=== PATIENT | female | born 1970 | race African-American/Black ===

== ENCOUNTER → 2019-01-16 | Outpatient (CLI) | payer MEDICARE ==
[~2019-01-16] MED LIST: ADVAIR INH; AMITRIPTYLINE H50 MG PO; BENICAR HCT 201 EACH PO; BENZONATATE100 MG PO; CLONAZEPAM0.5 MG PO; CYCLOBENZAPRINE10 MG PO; ELMIRON100 MG PO; FLOVENT DISKUS50 MCG; FOLIC ACID PO; FOLIC ACID1 MG PO; FOSAMAX70 MG PO; HUMALOG100 UNITS/ INJ; HUMIRA INJ; HUMIRA40 MG/0.1 INJ; KLONOPIN PO; LANTUS100 UNITS/ INJ; LEVAQUIN PO; LOPRESSOR PO; METHIMAZOLE5 MG PO; METHOTREXATE 1 G1 GM INJ; METOPROLOL SUC100 MG PO; NORCO 10-325 T1 EACH PO; PROMETHAZINE HC25 M1 PO; PROZAC40 MG PO; TRULICITY INJ; TYLENOL # 31 EA; UTA PO; VENTOLIN HFA18 GM INH
--- NOTE | 2019-01-16 10:38 | Diagnostic Imaging Report ---
EXAM: Renal Ultrasound INDICATION: ^[id number] ^[id number] ^CYST OF KIDNEY COMPARISON: None TECHNIQUE: Transverse and longitudinal images of the kidneys and bladder were obtained. FINDINGS: Right Kidney: Length: 9.3 cm Appearance: Normal echogenicity. Collecting system: No hydronephrosis Stones: None Cyst/Mass: Mid pole 1.3 x 0.9 x 1.1 cm anechoic simple cyst. Left Kidney: Length: 9.7 cm Appearance: Normal echogenicity. Collecting system: No hydronephrosis Stones: None Cyst/Mass: None Bladder: No mass or calculi. Bilateral ureteral jets seen. Prevoid volume estimate of 282.0 cc. IMPRESSION: No renal calculi or hydronephrosis. Right midpole simple cyst. Signed by: Sydney Hooper MD on 01/16/2019 10:35 AM
== END ==
LOC: US 09:11
PROVIDERS: ATTEND Urology
DX: N28.1 Cyst of kidney, acquired (principal)
CPT/HCPCS: 76770

== ENCOUNTER → 2019-01-26 | Outpatient (CLI) | payer MEDICARE ==
--- NOTE | 2019-01-26 13:49 | Diagnostic Imaging Report ---
Sacrum, 2 views. Pelvis, 1 view. History: InterStim placement. Findings: The soft tissues are normal. Bone mineralization is normal. There is no evidence of fracture or dislocation. There are no lytic or sclerotic lesions. The SI joints are within normal limits. Bilateral InterStim devices and leads are in appropriate position. IMPRESSION: Appropriate InterStim placement. No osseous abnormality. Signed by: Crow Mahajan on 01/26/2019 1:46 PM
== END ==
LOC: RAD 12:50
PROVIDERS: ATTEND Urology
DX: N31.9 Neuromuscular dysfunction of bladder, unspecified (principal)
CPT/HCPCS: 72170; 72220

== ENCOUNTER → 2019-04-17 | Day surgery (SDC) | payer MEDICARE ==
[2019-04-13 11:27] LABS: BASOPHILS # (AUTO) 0.1 (0.0-0.1); BASOPHILS % 0.8 % (0.0-1.0); EOSINOPHILS # (AUTO) 0.2 (0.0-0.4); EOSINOPHILS % 1.9 % (0.0-6.0); HEMATOCRIT 36.6 % (34.2-44.1); HEMOGLOBIN 11.9 g/dL (12.0-16.0); LYMPHOCYTES # (AUTO) 4.9 (1.0-3.2); LYMPHOCYTES % 56.2 % (18.0-39.1); MEAN CORPUSCULAR HEMOGLOBIN 28.4 pg (28-32); MEAN CORPUSCULAR HGB CONC 32.5 g/dL (31-35); MEAN CORPUSCULAR VOLUME 87.4 fL (81-99); MONOCYTES # (AUTO) 0.4 (0.2-0.8); MONOCYTES % 4.8 % (4.4-11.3); NEUTROPHILS # (AUTO) 3.1 (2.1-6.9); PLATELET COUNT 417 x10e3/uL (140-360); RED BLOOD COUNT 4.19 x10e6/uL (3.6-5.1); RED CELL DISTRIBUTION WIDTH 13.2 % (11.7-14.4)
[2019-04-13 11:43] LABS: ANION GAP 14.8 mmol/L (8-16); BLOOD UREA NITROGEN 10 mg/dL (7-26); BUN/CREATININE RATIO 11 (6-25); CALCIUM 9.2 mg/dL (8.4-10.2); CARBON DIOXIDE 24 mmol/L (22-29); CHLORIDE 101 mmol/L (98-107); EST GLOMERULAR FILTRATION RATE > 60 ML/MIN (60-); GLUCOSE 75 mg/dL (74-118); SODIUM 137 mmol/L (136-145)
[2019-04-13 12:24] LABS: POTASSIUM 2.8 mmol/L (3.5-5.1)
[~2019-04-17] MED LIST changes: +B&O 60MG R/S 60 MG SUPP PR ONE; +BENICAR20 MG PO; +BOTULINUM TOXIN TYPE A 100 UNIT VIAL IM ONE; +DEXAMETHASONE SOD PHOS INJ 4 MG/ML VIAL ONE; +DEXTROSE 5% 250ML 250 ML IV ONE; +FENTANYL CITRATE/PF 100MCG/2 ML INJ ONE; +GENTAMICIN 80MG/NS 100 ML 200 ML IV ONE; +HYDROCODONE/APAP 10MG-325MG TAB ONE; +IOPAMIDOL 300MG/ML 50ML INFUS..BTL IV ONE; +LEVOTHYROXINE125 MCG PO; +LEXAPRO10 MG PO; +LIDOCAINE HCL 2% LOCAL INJ 5 ML SDV VIAL INJ ONE; +MICROZIDE12.5 MG PO; +MIDAZOLAM HCL 2 MG/2 ML VIAL ONE; +MYRBETRIQ50 MG PO; +NITROGLYCERIN0.4 MG SL; +ONDANSETRON HCL INJ 2MG/ML 2ML 2 MG/ML VIAL ONE; +PREDNISONE5 MG PO; +PROPOFOL IV EMULSION 10 MG/ML 20 ML VIAL ONE; +SEVOFLURANE INHAL SOLN 250 ML PEN BTL ONE; +TIZANIDINE HCL2 M1 PO; +[UNRECOGNIZED DRUG - OTHER] PO
[2019-04-17 09:00] VITALS: BP 115/71
--- NOTE | 2019-05-24 00:54 | Operative Report ---
DATE OF PROCEDURE: 04/17/2019 SURGEON: Alexsander Taylor MD PREOPERATIVE DIAGNOSES: 1. Urge incontinence. 2. Urinary tract infections. POSTOPERATIVE DIAGNOSES: 1. Urge incontinence. 2. Urinary tract infections. 3. Grade 2 cystocele. 4. Urethral hypermobility. 5. Atrophic (senile) vaginitis. OPERATIONS PERFORMED: 1. Cystourethroscopy with bilateral ureteral catheterization and retrograde ureteropyelography. 2. Interpretation of retrograde ureteropyelography. 3. Cystourethroscopy with intravesical injection of Botox (separate procedure performed for the refractory incontinence). 4. Pelvic examination under anesthesia. ANESTHESIA: General. COMPLICATIONS: None. CLINICAL SUMMARY: Janice Vega is a 49-year-old woman with the above preoperative diagnoses. She is brought for the above procedures. She is aware of the risks of bleeding, infection, injury to adjacent structures, need for additional procedures and elected to proceed. OPERATIVE PROCEDURE IN DETAIL: Informed consent was verified. Janice Vega was properly identified, taken to the operating room, placed on the cystoscopy table in supine position. Anesthesia was uneventfully begun. The patient was then carefully gently repositioned in the dorsal lithotomy position with all pressure points well padded. Her genitalia were prepared and draped in the usual sterile fashion. Cystoscope sheath was inserted into the patient's urethra and bladder was drained. Panendoscopy revealed no suspicious mucosal lesions, no tumors, no stones, and no diverticula. Trabeculations were noted. An 8-Turkmen catheter was used to cannulate each ureter and retrograde ureteral pyelograms were performed. Interpretation of retrograde ureteropyelography contrast was instilled in retrograde fashion bilaterally. There were no tumors, no stones, and no diverticula. Unobstructed drainage was observed bilaterally fluoroscopically. Bilateral J hooking was noted. InterStim leads were noted to be in place. These are the older generation leads. A 200 units of Botox were dissolved in 20 mL of sterile saline. They were injected in 1 mL aliquots in an even distribution throughout the supratrigonal bladder. The bladder was drained. Cystoscope was withdrawn. Pelvic examination revealed a grade 2 cystocele with urethral hypermobility and atrophic vaginitis. No abnormal palpable pelvic masses could be appreciated. There were no obvious mucosal lesions. The patient was then uneventfully reversed from anesthesia and taken to recovery room in stable condition. There were no complications to the procedure. She tolerated the procedure well. Explicit postop instructions were given. We will follow the patient in the office. MD CHATO Manzano/JENELLE /[id number]
== END | disposition home or self-care (01) ==
LOC: OR 05:17
PROVIDERS: ATTEND Urology
DX: N39.41 Urge incontinence (principal); N39.0 Urinary tract infection, site not specified; N81.10 Cystocele, unspecified; N36.41 Hypermobility of urethra; N95.2 Postmenopausal atrophic vaginitis; N32.89 Other specified disorders of bladder; N31.9 Neuromuscular dysfunction of bladder, unspecified; R39.16 Straining to void; R81 Glycosuria; R35.1 Nocturia; Z98.890 Other specified postprocedural states; M32.9 Systemic lupus erythematosus, unspecified; E66.9 Obesity, unspecified; M06.9 Rheumatoid arthritis, unspecified; E11.9 Type 2 diabetes mellitus without complications; J45.909 Unspecified asthma, uncomplicated; I34.1 Nonrheumatic mitral (valve) prolapse; K58.9 Irritable bowel syndrome, unspecified; I11.0 Hypertensive heart disease with heart failure; I50.9 Heart failure, unspecified; Z88.0 Allergy status to penicillin; Z88.6 Allergy status to analgesic agent; Z88.1 Allergy status to other antibiotic agents; Z91.041 Radiographic dye allergy status; Z01.812 Encounter for preprocedural laboratory examination; Z79.4 Long term (current) use of insulin; Z68.30 Body mass index [BMI] 30.0-30.9, adult; Z87.442 Personal history of urinary calculi
CPT/HCPCS: 36415 ×2; 52005; 52287; 74420; 80048; 82948; 84132; 85025; C1758; J0587; J1100; J1580; J2001; J2250; J2405; J2704; J3010; J7070; Q9967

== ENCOUNTER → 2019-06-23 | Day surgery (SDC) | payer MEDICARE ==
[~2019-06-23] MED LIST changes: +AZO BLADDER CO300 MG; +AZO COMPLETE F1 EACH PO; +BACLOFEN10 MG PO; +BUPIVACAINE HCL 0.5% INJ 30 ML VIAL INJ ONE; +DESFLURANE 240 ML BTL INH ONE; -DEXTROSE 5% 250ML 250 ML IV ONE; +EPHEDRINE SULFATE INJ 50 MG/ML VIAL ONE; -HYDROCODONE/APAP 10MG-325MG TAB ONE; +LEVOFLOXACIN 500MG/D5W 100ML 100 ML IV ONE; +LIDOCAINE 2%/ EPINEPHRINE 20ML MDV ONE; +MACROBID 100 M100 MG PO; +POTASSIUM99 M1 PO; +PROAIR HFA INH8.5 GM INH; -SEVOFLURANE INHAL SOLN 250 ML PEN BTL ONE; +VITAMIN D35000 UNI2 PO
[2019-06-23 09:33] LABS: BASOPHILS # (AUTO) 0.1 (0.0-0.1); BASOPHILS % 0.6 % (0.0-1.0); EOSINOPHILS # (AUTO) 0.3 (0.0-0.4); EOSINOPHILS % 2.9 % (0.0-6.0); HEMATOCRIT 34.7 % (34.2-44.1); LYMPHOCYTES # (AUTO) 5.1 (1.0-3.2); LYMPHOCYTES % 54.2 % (18.0-39.1); MEAN CORPUSCULAR HEMOGLOBIN 28.4 pg (28-32); MEAN CORPUSCULAR HGB CONC 31.7 g/dL (31-35); MEAN CORPUSCULAR VOLUME 89.7 fL (81-99); MONOCYTES # (AUTO) 0.6 (0.2-0.8); MONOCYTES % 5.8 % (4.4-11.3); NEUTROPHILS # (AUTO) 3.4 (2.1-6.9); NEUTROPHILS % 36.1 % (38.7-80.0); PLATELET COUNT 416 x10e3/uL (140-360); RED BLOOD COUNT 3.87 x10e6/uL (3.6-5.1); RED CELL DISTRIBUTION WIDTH 13.6 % (11.7-14.4)
[2019-06-23 09:56] LABS: ANION GAP 12.7 mmol/L (8-16); BLOOD UREA NITROGEN 16 mg/dL (7-26); BUN/CREATININE RATIO 15 (6-25); CALCIUM 8.7 mg/dL (8.4-10.2); CARBON DIOXIDE 24 mmol/L (22-29); CHLORIDE 106 mmol/L (98-107); CREATININE, SERUM 1.05 mg/dL (0.57-1.11); EST GLOMERULAR FILTRATION RATE > 60 ML/MIN (60-); GLUCOSE 87 mg/dL (74-118); POTASSIUM 3.7 mmol/L (3.5-5.1); SODIUM 139 mmol/L (136-145)
[2019-06-23 10:49] LABS: EOSINOPHILS % (MANUAL) 1 % (0-7); MONOCYTES % (MANUAL) 2 % (3.4-9.0); NEUTROPHILS % (MANUAL) 29 % (40-74); PLATELET ESTIMATE SLIGHTLY INCREASED; RBC MORPHOLOGY COMMENT NORMAL
[2019-06-23 10:50] LABS: LYMPHOCYTES % (MANUAL) 68 % (19-48); PLATELET MORPHOLOGY COMMENT NORMAL
[2019-06-23 13:00] VITALS: BP 115/69
--- NOTE | 2019-06-25 23:01 | Operative Report ---
DATE OF PROCEDURE: 06/23/2019 SURGEON: Alexsander Taylor MD PREOPERATIVE DIAGNOSES: 1. Chronic urinary retention with pain. 2. Overactive bladder with refractory urge incontinence. 3. Urinary tract infections. POSTOPERATIVE DIAGNOSES: 1. Chronic urinary retention with pain. 2. Overactive bladder with refractory urge incontinence. 3. Urinary tract infections. 4. Mild grade 1 cystocele. OPERATIONS PERFORMED: 1. Cystourethroscopy with bilateral ureteral catheterization and retrograde ureteropyelography (separate procedure performed for the urinary tract infections). 2. Interpretation of retrograde ureteropyelography. 3. Cystourethroscopy with intravesical injection of Botox (separate procedure performed for the refractory incontinence). 4. Cystotomy and cystostomy (separate procedure done in an open fashion to drain the patient's bladder). ANESTHESIA: General. COMPLICATIONS: None. CLINICAL SUMMARY: Janice Vega is a 49-year-old woman with very complicated history. She has chronic urinary retention as a result of elimination of bladder, which developed following her hysterectomy many years ago. The patient has been managed with intermittent catheterizations; however, this has become problematic and she has developed fairly significant pain in her bladder. She desires her pain relieved with suprapubic cystostomy. She is aware of the coronavirus outbreak and the potential for COVID-19 infection; however, she wants this procedure done to help relieve her pain and she cannot wait a month or two for this epidemic to resolve. She understands all the risks and elected to proceed. OPERATIVE PROCEDURE IN DETAIL: Informed consent was verified. Janice Vega was properly identified, taken to the operating room, placed on the cystoscopy table in supine position. Anesthesia was uneventfully begun. The patient was then carefully gently repositioned in dorsal lithotomy position. All pressure points well padded. Her genitalia were prepared and draped in the usual sterile fashion. The cystoscope sheath with obturator in place was atraumatically inserted in the patient's urethra and bladder was drained. Panendoscopy revealed no suspicious mucosal lesions, no tumors, no stones, and no diverticula. Normally positioned and configured ureteral orifices were identified. An 8-Tongan catheter was used to cannulate each ureter and retrograde ureteral pyelograms were performed. Interpretation of retrograde ureteropyelography contrast was instilled in retrograde fashion bilaterally. There were no tumors, no stones, no diverticula. Unobstructed drainage was observed bilaterally fluoroscopically. Bilateral InterStim leads were noted. These are the old leads that have been discontinued many years ago. 200 units of Botox were dissolved in 20 mL of sterile saline. They were injected in 1 mL aliquots in an even distribution throughout the supratrigonal bladder. The cystoscope was withdrawn. We utilized Cassy sound that has a hole drilled through its side. We utilized this tool to tent up the anterior surface of the bladder towards the abdominal wall. We infiltrated the soon-to-be tract with a combination of Marcaine and lidocaine with epinephrine. We then made a small stab incision overlying the tented up sound. The Bovie electrode was then utilized to incise the subcutaneous tissues as well as a small hole in the fascia and a small hole in the bladder. This allowed the sound to be brought up through this hole. We then tied a Hagen catheter to the sound and pulled the sound back out through the urethral drain along with the Hagen catheter. The suture was cut and then the Hagen catheter was pulled until the balloon was in the bladder and inflated with 10 mL of sterile water. The 2-0 nylon sutures were utilized to secure the tube at the level of the skin. The cystoscope was reintroduced. We examined the anterior bladder wall and it exhibited no bleeding. The suprapubic cystostomy balloon was in perfect position near at the anterior wall. Pelvic examination under anesthesia revealed grade 1 cystocele. No suspicious mucosal lesions were identified. There were no obvious palpable pelvic masses. The patient was uneventfully reversed from anesthesia and taken to recovery room in stable condition. There were no complications from the procedure. She tolerated the procedure well. Explicit postoperative instructions were given. We will follow the patient up in the office in 5-6 weeks to change her SP tube. Alexsander MD Claudia [place]/MODL /[id number]
== END | disposition home or self-care (01) ==
LOC: OR 08:23
PROVIDERS: ATTEND Urology
DX: N31.2 Flaccid neuropathic bladder, not elsewhere classified (principal); N39.41 Urge incontinence; N30.11 Interstitial cystitis (chronic) with hematuria; R81 Glycosuria; R35.1 Nocturia; E66.9 Obesity, unspecified; N28.1 Cyst of kidney, acquired; N81.89 Other female genital prolapse; N36.41 Hypermobility of urethra; N95.2 Postmenopausal atrophic vaginitis; Z96.82 Presence of neurostimulator; I44.0 Atrioventricular block, first degree; J44.9 Chronic obstructive pulmonary disease, unspecified; I10 Essential (primary) hypertension; E11.9 Type 2 diabetes mellitus without complications; E03.9 Hypothyroidism, unspecified; M32.9 Systemic lupus erythematosus, unspecified; M06.9 Rheumatoid arthritis, unspecified; K58.9 Irritable bowel syndrome, unspecified; K57.90 Diverticulosis of intestine, part unspecified, without perforation or abscess without bleeding; F32.9 Major depressive disorder, single episode, unspecified; F41.9 Anxiety disorder, unspecified; Z88.0 Allergy status to penicillin; Z88.6 Allergy status to analgesic agent; Z88.1 Allergy status to other antibiotic agents; Z91.041 Radiographic dye allergy status; Z79.4 Long term (current) use of insulin; Z68.30 Body mass index [BMI] 30.0-30.9, adult
CPT/HCPCS: 36415; 51040; 52005; 52287; 74420; 80048; 82948; 85025; 93005; C1758; J0587; J1100; J1580; J1956; J2001 ×2; J2250; J2405; J2704; J3010; Q9967

== ENCOUNTER 2019-08-21 14:11 | Inpatient (IN) | payer MEDICARE, OTHER ==
[~2019-08-21] VITALS: Ht 167.6 cm; Wt 89.8 kg
[~2019-08-21 14:11] MED LIST changes: -B&O 60MG R/S 60 MG SUPP PR ONE; -BOTULINUM TOXIN TYPE A 100 UNIT VIAL IM ONE; -BUPIVACAINE HCL 0.5% INJ 30 ML VIAL INJ ONE; -DESFLURANE 240 ML BTL INH ONE; -DEXAMETHASONE SOD PHOS INJ 4 MG/ML VIAL ONE; -EPHEDRINE SULFATE INJ 50 MG/ML VIAL ONE; -FENTANYL CITRATE/PF 100MCG/2 ML INJ ONE; -GENTAMICIN 80MG/NS 100 ML 200 ML IV ONE; -IOPAMIDOL 300MG/ML 50ML INFUS..BTL IV ONE; -LEVOFLOXACIN 500MG/D5W 100ML 100 ML IV ONE; -LIDOCAINE 2%/ EPINEPHRINE 20ML MDV ONE; -LIDOCAINE HCL 2% LOCAL INJ 5 ML SDV VIAL INJ ONE; -MIDAZOLAM HCL 2 MG/2 ML VIAL ONE; -ONDANSETRON HCL INJ 2MG/ML 2ML 2 MG/ML VIAL ONE; -PROPOFOL IV EMULSION 10 MG/ML 20 ML VIAL ONE
--- OUTSIDE RECORDS SUMMARY | 2019-08-21 14:15 | XMS REPORT | Clinical Summary ---
Author Author [facility] Organization [facility] Address Unknown Phone Unavailable Care Team Providers Care Home Care Physical Therapist Name Role Phone Piotr Guerrero MD PCP Allergies Comments Active Allergy Reactions Severity Noted Date Cephalexin Other (See 05/06/2015 Comments) Erythromycin Base Other (See 05/06/2015 Comments) Penicillins Other (See 05/06/2015 Comments) Sulfa (Sulfonamide Other (See 05/06/2015 Antibiotics) Comments) Sulfamethoxazole-Trimetho Other (See 05/06/2015 prim Comments) Medications End Date Status Medication Sig Dispensed Refills Start Date Active HUMIRA PEN 40 mg/0.8 mL 0 pen injector kit 6 Active alendronate (FOSAMAX) 70 11 MG tablet 6 Active clonAZEPAM (KlonoPIN) 0.5 0 MG tablet 6 Active VOLTAREN 1 % gel 0 6 Active HYDROcodone-acetaminophen 0 (NORCO 10-325) 10-325 mg 6 per tablet Active methimazole (TAPAZOLE) 5 5 MG tablet 6 Active folic acid (FOLVITE) 1 MG Take 1 mg by 0 tablet mouth daily. Active insulin syringe-needle Use 4 daily 400 each 10 U-100 0.3 mL 31 x 5/16" 6 syringe Active LANTUS 100 unit/mL INJECT 23 30 mL 1 01 injection UNITS 6 SUBCUTANEOUSL Y ONCE DAILY Active amitriptyline (ELAVIL) 50 TK 1 T PO QHS 1 03/24 0/201 MG tablet 7 Active escitalopram (LEXAPRO) 10 TK 1 T PO QD 0 05/21 3/201 MG tablet 7 Active OTREXUP, PF, 20 mg/0.4 mL 0 auto-injector 7 Active olmesartan-hydrochlorothi TK 1 T PO QD 2 04/23 azide (BENICAR HCT) 7 20-12.5 mg per tablet Active metoprolol tartrate Take 100 mg 0 (LOPRESSOR) 100 mg tablet by mouth 2 (two) times a day. Active insulin lispro (HumaLOG) Inject 5 0 100 unit/mL injection Units under the skin daily with dinner. Active nitroglycerin (NITROSTAT) Place 0.4 mg 0 0.4 MG SL tablet under the tongue every 5 (five) minutes as needed for chest pain. Active blood sugar diagnostic 2 strips 200 strip 10 strips (ONETOUCH ULTRA daily as 7 TEST) strip test strips directed. Active blood sugar diagnostic ONE TOUCH 270 strip 3 strips strip test strips ULTRA BLUE 7 TEST STRIPS TID testing Active TRULICITY 1.5 mg/0.5 mL INJECT 1.5MG 12 Syringe 1 0 pen injector UNDER SKIN 7 ONCE A WEEK Active levothyroxine (SYNTHROID, TAKE 1 90 tablet 1 LEVOXYL) 112 mcg tablet TABLET(112 7 MCG) BY MOUTH DAILY Active methocarbamol (ROBAXIN) Take 1 tablet 21 tablet 0 500 MG tablet (500 mg 9 total) by mouth 3 (three) times a day as needed for muscle spasms for up to 21 doses. Active Problems Problem Noted Date Uncontrolled type 2 diabetes mellitus 05/06/2015 Social History Date Tobacco Use Types Packs/Day Years Used Never Smoker Smokeless Tobacco: Never Used Drinks/Week oz/Week Comments Alcohol Use 1 Glasses of wine 1.0 Yes Sex Assigned at Date Recorded Not on file Industry Job Start Date Occupation Not on file Not on file Not on file Travel End Travel History Travel Start No recent travel history available. Last Filed Vital Signs Not on file Plan of Treatment Health Maintenance Due Date Last Done Comments DIABETIC RETINAL EYE EXAM 1972 DIABETIC FOOT EXAM 1982 CERVICAL CANCER SCREENING 1993 URINE MICROALBUMIN 05/22/2016 05/23/2015 INFLUENZA VACCINE 10/21/2019 Results Not on fileafter 08/20/2018 Insurance Type Payer Benefit Subscriber ID Effective Phone Address Plan / Dates Group Medicare MEDICARE MEDICARE xxxxxxxxxxx 2009-[place] [phone] Advance Directives For more information, please contact: [phone] Patient Nursing Admin Explanation Type Date Recorded Advance Directives, Living Will 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
--- OUTSIDE RECORDS SUMMARY | 2019-08-21 14:15 | XMS REPORT ---
Author Author [facility] t Organization [facility] Address [address] [place] [address] Phone Unavailable Care Team Providers Care Yard Warehouse Worker Name Role Phone Yolanda TABOR, Piotr PCP OLGA KING Unavailable Payers Payer Name Policy Type Policy Number Effective Date Expiration Date S ource Problems Condition Name Condition Details Condition Category Status Onset Date Resolution Date Last Treatment Date Treating Clinician Comments Source Uncontrolled type 2 diabetes mellitus Uncontrolled type 2 di abetes mellitus Disease Active 2015-05-06 00:00:00 Osvaldo Kitchen Allergies, Adverse Reactions, Alerts Allergy Name Allergy Type Status Severity Reaction(s) Onset Date Inacti ve Date Treating Clinician Comments Source Penicillins DA Active IN 2015-09-16 00:00:00 [facility] Sulfa (Sulfonamide Antibiotics) DA Active IN 2015-09-16 00 :00:00 [facility] cephalexin DA Active IN 2015-09-16 00:00:00 [facility] erythromycin base DA Active IN 2015-09-16 00:00:00 [facility] sulfamethoxazole DA Active IN 2015-09-16 00:00:00 [facility] trimethoprim DA Active U 2015-09-16 00:00:00 [facility] amoxicillin DA Active U 2015-09-16 00:00:00 [facility] Cephalexin Propensity to adverse reactions to drug Active Other (See Comments) 2015-05-06 00:00:00 Osvaldo Kitchen Erythromycin Base Propensity to adverse reactions to drug Active Other (See Comments) 2015-05-06 00:00:00 Osvaldo Kitchen Penicillins Propensity to adverse reactions to drug Active Other (See Comments) 2015-05-06 00:00:00 Osvaldo Kitchen Sulfa (Sulfonamide Antibiotics) Propensity to adverse reactions to drug Active Other (See Comments) 2015-05-06 00:00:00 Osvaldo Kitchen Sulfamethoxazole-Trimethoprim Propensity to adverse reactions to dr ug Active Other (See Comments) 2015-05-06 00:00:00 Osvaldo Kitchen Social History Social Habit Start Date Stop Date Quantity Comments Source Sex Assigned At Keri ambrose Imtiaz Alcohol intake 2018-06-20 00:00:00 2018-06-20 00:00:00 Current drinker of alcohol (finding) sOvaldo Kitchen Smoking Status Start Date Stop Date Source Never smoker Osvaldo Wilde t Medications Ordered Medication Name Filled Medication Name Start Date Stop Da te Current Medication? Ordering Clinician Indication Dosage Frequency Signature (SIG) Comments Components Source methocarbamol (ROBAXIN) 500 MG tablet 2018-06-20 00:00:00 Yes 500mg [id number] Take 1 tablet (500 mg total) by mouth 3 (three) times a day as needed for muscle spasms for up to 21 doses. Osvaldo Kitchen levothyroxine (SYNTHROID, LEVOXYL) 112 mcg tablet 2016-11-25 00:00:00 Yes TAKE 1 TABLET(112 MCG) BY MOUTH DAILY Osvaldo Kitchen TRULICITY 1.5 mg/0.5 mL pen injector 2016-08-18 00:00:00 Ye s INJECT 1.5MG UNDER SKIN ONCE A WEEK Osvaldo yuan blood sugar diagnostic strips strip test strips 2016-08-11 00:00 :00 Yes ONE TOUCH ULTRA BLUE TEST STRIPS TID testing Osvaldo Kitchen blood sugar diagnostic strips (ONETOUCH ULTRA TEST) strip te st strips 2016-07-02 00:00:00 Yes 2 strips daily as directed. Osvaldo Kitchen nitroglycerin (NITROSTAT) 0.4 MG SL tablet 2016-06-19 09:39:[address] 0.4 mg under the tongue every 5 (five) minutes a s needed for chest pain. Osvaldo Kitchen metoprolol tartrate (LOPRESSOR) 100 mg tablet 2016-06-19 09:38:4 9 Yes 100mg Q.5D Take 100 mg by mouth 2 (two) times a day. Osvaldo Kitchen insulin lispro (HumaLOG) 100 unit/mL injection 2016-06-19 09:38: 49 Yes 5U QD Inject 5 Units under the skin daily with dinner. Osvaldo Kitchen folic acid (FOLVITE) 1 MG tablet 2016-06-19 09:34:35 Yes 1mg QD Take 1 mg by mouth daily. Osvaldo Kitchen escitalopram (LEXAPRO) 10 MG tablet 2016-06-11 00:00:00 Yes TK 1 T PO QD Osvaldo Kitchen OTREXUP, PF, 20 mg/0.4 mL auto-injector 2016-06-10 00:00:00 Ye s Osvaldo Kitchen olmesartan-hydrochlorothiazide (BENICAR HCT) 20-12.5 mg per tablet 2016-05-16 00:00:00 Yes TK 1 T PO QD H ouarnol Kitchen amitriptyline (ELAVIL) 50 MG tablet 2016-04-20 00:00:00 Yes TK 1 T PO QHS Osvaldo Kitchen LANTUS 100 unit/mL injection 2016-02-19 00:00:00 Yes INJECT 23 UNITS SUBCUTANEOUSLY ONCE DAILY Osvaldo Sood isyanira insulin syringe-needle U-100 0.3 mL 31 x 5/16" syringe 2015-06-26 00:00:00 Yes Use 4 daily Osvaldo rosario HYDROcodone-acetaminophen (NORCO 10-325) 10-325 mg per table t 2015-05-11 00:00:00 Yes Osvaldo Kitchen methimazole (TAPAZOLE) 5 MG tablet 2015-05-09 00:00:00 Yes Osvaldo Kitchen HUMIRA PEN 40 mg/0.8 mL pen injector kit 2015-04-25 00:00:00 Y es Osvaldo Kitchen clonAZEPAM (KlonoPIN) 0.5 MG tablet 2015-04-24 00:00:00 Yes Osvaldo Kitchen VOLTAREN 1 % gel 2015-04-24 00:00:00 Yes Osvaldo Kitchen alendronate (FOSAMAX) 70 MG tablet 2015-03-24 00:00:00 Yes Osvaldo Kitchen Procedures This patient has no known procedures. Plan of Care Planned Activity Planned Date Details Comments Source Future Scheduled Test 2019-10-21 00:00:00 INFLUENZA VACCINE [code = INFLUENZA VACCINE] Osvaldo Kitchen Future Scheduled Test 2016-05-22 00:00:00 URINE MICROALBUMIN [code = URINE MICROALBUMIN] Osvaldo Kitchen Future Scheduled Test 1993 00:00:00 Screening for karan gnant neoplasm of cervix (procedure) [code = 165097961] Osvaldo Wilde t Future Scheduled Test 1982 00:00:00 DIABETIC FOOT EXAM [code = DIABETIC FOOT EXAM] Osvaldo Kitchen Future Scheduled Test 1972 00:00:00 DIABETIC RETINAL E YE EXAM [code = DIABETIC RETINAL EYE EXAM] Osvaldo Kitchen Results Test Description Test Time Test Comments Results Result Comments Source CHEST 2 VIEWS 2019-03-10 12:21:00 [place] [address] Patient Name: ELVIA NORMAN MR #: [id number] : 1970 Age/Sex: 49/F Req #: [id number] Adm Physician: Ordered by: OLGA KING MD Report #: [id number] Location: OR Room/Bed: Procedure: [id number] DX/CHEST 2 VIEWS Exam Date: 03/10/19 Exam Time: 1138 REPORT STATUS: Signed EXAMINATION: CHEST 2 VIEWS INDICATION: Pre-operative COMPARISON: None FINDINGS: LINES/TUBES:None LUNGS:The lungs are well-inflated. No focal consolidation or pulmonary edema. PLEURA:No pleural effusion or pneumothorax. MEDIA STINUM:The cardiomediastinal silhouette appears normal in size and shape. BONES/SOFT TISSUES:No acute osseous injury. ABDOMEN:No free air under the diaphragm. IMPRESSION: No focal pneumonia or pulmonary edema. Signed by: Jagdish Vidal MD on 03/10/2019 12:21 PM Dictated By: JAGDISH VIDAL MD 1221 Transcribed By: JAMA on 03/10/19 1221 COPY TO: OLGA KING MD PELVIS AP 1-2 VIEWS 2019-01-26 13:44:00 [facility] [address] [place], [place] [address] Patient Name: ELVIA NORMAN MR #: [id number] : 1970 Age/Sex: 48/F Req #: [id number] Adm Physician: Ordered by: OLGA KING MD Report #: [id number] Location: [facility] Room/Bed: Procedure: [id number] DX/PELVIS AP 1-2 VIEWS Exam Date: Exam Time: REPORT STATUS: Signed Sacrum, 2 views. Pelvis, 1 view. History: InterStim placement. Findings: The soft tissues are normal. Bone mineralization is normal. There is no evidence of fracture or dislocation. There are no lytic or sclerotic lesions. The SI joints are within normal l imits. Bilateral InterStim devices and leads are in appropriate position. IMPRESSION: Appropriate InterStim placement. No osseous abnormality. Signed by: Crow Mahajan on 01/26/2019 1:46 PM Dictated By: CROW MAHAJAN MD 1346 Transcribed By: JAMA on 01/26/19 1346 COPY TO: OLGA KING MD SACRUM X-RAY 2019-01-26 13:44:00 [facility] [address] [place], [place] [address] Patient Name: ELVIA NORMAN MR #: [id number] : 1970 Age/Sex: 48/F Req #: [id number] Adm Physician: Ordered by: OLGA KING MD Report #: [id number] Location: [facility] Room/Bed: Procedure: [id number] DX/SACRUM X-RAY Exam Date: Exam Time: REPORT STATUS: Signed Sacrum, 2 views. Pelvis, 1 view. History: InterStim placement. Findings: The soft tissues are normal. Bone mineralization is normal. There is no evidence of fracture or dislocation. There are no lytic or sclerotic lesions. The SI joints are within normal limits. Bilateral InterStim devices and leads are in appropriate position. IMPRESSION: Appropriate InterStim placement. No osseous abnormality. Signed by: Crow Mahajan on 01/26/2019 1:46 PM Dictated By: CROW MAHAJAN MD 1346 Transcribed By: JAMA on 01/26/19 1346 COPY TO: OLGA KING MD RENAL RETROPERITONEAL COMP 2019-01-16 10:33:00 [place] [address] Patient Name: ELVIA NORMAN MR #: [id number] : 1970 Age/Sex: 48/F Req #: [id number] Adm Physician: Ordered by: OLGA KING MD Report #: [id number] Location: Room/Bed: Procedure: [id number] US/US RENAL RETROPERITONEAL COMP Exam Date: 01/16/19 Exam Time: 937 REPORT STATUS: Signed EXAM: Renal Ultrasound INDICATION: [id number] CYST OF KIDNEY COMPARISON: None TECHNIQUE: Transverse and longitudinal images of the kidneys and bladder were obtained. FINDINGS: Right Kidney: Length: 9.3 cm Appearance: Normal echogenicity. Collecting system: No hydronephrosis Stones: None Cyst/Mass: Mid pole 1.3 x 0.9 x 1.1 cm anechoic simple cyst. Left Kidney: Length: 9.7 cm Appearance: Normal echogenicity. Collecting system: No hydronephrosis Stones: None Cyst/Mass: None Bladder: No mass or calculi. Bilateral ureteral jets seen. Prevoid volume estimate of 282. 0 cc. IMPRESSION: No renal calculi or hydronephrosis. Right midpole simple cyst. Signed by: Jagdish Vidal MD on 01/16/2019 10:35 AM Dictated By: JAGDISH VIDAL MD 1035 Transcribed By: JAMA on 01/16/19 1035 COPY TO: OLGA KING MD
[2019-08-21 15:53] LABS: BILIRUBIN,URINE NEGATIVE (NEGATIVE); CLARITY,URINE SL CLOUDY (CLEAR); COLOR,URINE YELLOW (YELLOW); KETONES,URINE NEGATIVE (NEGATIVE); LEUKOCYTE ESTERASE ,URINE SMALL (NEGATIVE); NITRITE,URINE POSITIVE (NEGATIVE); PROTEIN,URINE DIPSTICK NEGATIVE (NEGATIVE); URINE UROBILINOGEN 0.2 mg/dL (0.2 - 1)
[2019-08-21 16:06] LABS: BACTERIA,URINE MODERATE /HPF; EPITHELIAL CELLS,URINE MODERATE /LPF; RBC,URINE 0-5 /HPF (0-5)
[2019-08-21 16:57] LABS: BASOPHILS # (AUTO) 0.1 (0.0-0.1); BASOPHILS % 0.9 % (0.0-1.0); EOSINOPHILS # (AUTO) 0.2 (0.0-0.4); EOSINOPHILS % 3.1 % (0.0-6.0); HEMOGLOBIN 13.1 g/dL (12.0-16.0); LYMPHOCYTES # (AUTO) 3.5 (1.0-3.2); LYMPHOCYTES % 55.3 % (18.0-39.1); MEAN CORPUSCULAR HEMOGLOBIN 27.9 pg (28-32); MEAN CORPUSCULAR HGB CONC 31.2 g/dL (31-35); MEAN CORPUSCULAR VOLUME 89.6 fL (81-99); MONOCYTES # (AUTO) 0.3 (0.2-0.8); MONOCYTES % 4.1 % (4.4-11.3); NEUTROPHILS # (AUTO) 2.3 (2.1-6.9); NEUTROPHILS % 36.3 % (38.7-80.0); PLATELET COUNT 426 x10e3/uL (140-360); RED BLOOD COUNT 4.69 x10e6/uL (3.6-5.1); RED CELL DISTRIBUTION WIDTH 12.4 % (11.7-14.4)
[2019-08-21 17:11] LABS: ALANINE AMINOTRANSFERASE 15 IU/L (0-55); ALBUMIN 3.5 g/dL (3.5-5.0); ALBUMIN/GLOBULIN RATIO 0.7 (0.8-2.0); ALKALINE PHOSPHATASE 60 IU/L (40-150); ANION GAP 14.3 mmol/L (8-16); BLOOD UREA NITROGEN 8 mg/dL (7-26); BUN/CREATININE RATIO 9 (6-25); CARBON DIOXIDE 24 mmol/L (22-29); CHLORIDE 106 mmol/L (98-107); CREATINE KINASE 62 IU/L (29-168); CREATININE, SERUM 0.93 mg/dL (0.57-1.11); EST GLOMERULAR FILTRATION RATE > 60 ML/MIN (60-); GLUCOSE 85 mg/dL (74-118); POTASSIUM 5.3 mmol/L (3.5-5.1); SODIUM 139 mmol/L (136-145)
[2019-08-21 17:38] LABS: PREGNANCY TEST, URINE NEGATIVE (NEGATIVE)
[2019-08-21] MEDS ORDERED: SOD POLYSTYRENE SULFONATE SUSP 15 GM/60 ML BTL PO ONE (19:00)
--- NOTE | 2019-08-21 19:00 | Diagnostic Imaging Report ---
EXAM: CT Abdomen and Pelvis WITHOUT contrast INDICATION: Abdominal pain. Pain urethra. COMPARISON:. TECHNIQUE: Abdomen and pelvis were scanned utilizing a multidetector helical scanner from the lung base to the pubic symphysis without administration of IV contrast. Absence of intravenous contrast decreases sensitivity or detection of focal lesions and vascular pathology. Coronal and sagittal reformations were obtained. Routine protocol was performed. IV CONTRAST: None. ORAL CONTRAST: Gastrografin water mixture. RADIATION DOSE: Total DLP: 439.91 mGy*cm Estimated effective dose: (DLP x 0.015 x size factor) mSv COMPLICATIONS: None FINDINGS: LINES and TUBES: Suprapubic bladder catheter appears in adequate position, however patency cannot be evaluated with this noncontrast examination.. LOWER THORAX: Unremarkable HEPATOBILIARY: No focal hepatic lesions. No biliary ductal dilation. GALLBLADDER: No radio-opaque stones or sludge. No wall thickening. SPLEEN: No splenomegaly. PANCREAS: No focal masses or ductal dilatation. ADRENALS: No adrenal nodules KIDNEYS/URETERS: No hydronephrosis. No cystic or solid mass lesions. No stones. GI TRACT: No abnormal distention, wall thickening, or evidence of bowel obstruction. Appendix is normal. PELVIC ORGANS/BLADDER: The uterus is absent. Bilateral INTERSTIM devices. Multiple phleboliths scattered throughout the pelvis. LYMPH NODES: No lymphadenopathy. VESSELS: Unremarkable. PERITONEUM / RETROPERITONEUM: No free air or fluid. BONES: Unremarkable. SOFT TISSUES: Unremarkable. IMPRESSION: 1. No acute abdominal pelvic abnormality. Signed by: Dr. Tiera Singh M.D. on 08/21/2019 6:57 PM
--- NOTE | 2019-08-21 19:25 | Emergency Department Note ---
History of Present Illnes History of Present Illness Chief Complaint: Genitourinary History of Present Illness This is a 49 year old female arrived to the ED with complaints of abdominal pain for several days, getting worse . Chief Complaint Comment PATIENT IN FROM HOME WITH COMPLAINTS OF PAIN AND DIFFICULTY URINATING; STATES HAS A SUPRAPUBIC CATHETER PLACED APPROX 1 MONTH AGO AFTER A HYSTERECTOMY, RATES PAIN 8/10 AND STATES THAT SHE FEELS "LIKE THERE IS A BB IN THERE". PATIENT REPORTS DECREASED URINARY OUTPUT THROUGH CATHETER, HAS BEEN TAKING AZO FOR OVER A MONTH. ALSO STATES THAT SHE JUST COMPLETED A 4 WEEK OURSE OF ABX ABOUT 3 DAYS AGO Historian: Patient Arrival Mode: Car Onset (how long ago): day(s) Radiation: non-radiation Severity: mild Onset quality: gradual Duration (how long): day(s) Progression: worsening Chronicity: new Past Medical/Family History Physician Review I have reviewed the patient's past medical and family history. Any updates have been documented here. Past Medical History Recent Fever: No Clinical Suspicion of Infectio: No New/Unexplained Change in Ment: No Past Medical History: Hypertension, Diabetes, COPD, Hypothyroidism, Anxiety, L upus Other Medical History: Lupus RA Bladder pacemaker Past Surgical History: Hysterectomy Other Surgery: Bladder pacemaker scopes Angiogram THYROIDECTOMY Social History Smoking Cessation: Never Smoker Counseling Performed: No Alcohol Use: None Any Illegal Drug Use: No TB Exposure/Symptoms: No Physically hurt or threatened: No Family History Family history of heart diseas: No Other Last Tetanus: UTD Any Pre-Existing Lines (PICC,: No Is patient up to date on immun: Yes Last Flu: UTD Last Pneumovax: UTD Review of Systems Review of Systems Constitutional: no symptoms EENTM: no symptoms Cardiovascular: no symptoms Respiratory: no symptoms Gastrointestinal: as per HPI, abdominal pain Genitourinary: no symptoms Musculoskeletal: no symptoms Neurological: no symptoms Psychological: no symptoms Endocrine: no symptoms Hematological/Lymphatic: no symptoms Review of other systems All other systems reviewed and negative. Physical Exam Related Data Allergies: Coded Allergies: morphine (Verified Allergy, Mild, itch, 08/21/19) Penicillins (Verified Allergy, Unknown, hives, diarrhea n/v, 08/21/19) cephalexin (Verified Allergy, Unknown, RASH, 08/21/19) erythromycin base (Verified Allergy, Unknown, RASH, 08/21/19) iodine (Verified Allergy, Unknown, 08/21/19) sulfamethoxazole (Verified Allergy, Unknown, RASH, 08/21/19) trimethoprim (Verified Allergy, Unknown, RASH, 06/19/16) Triage Vital Signs Vital Signs Date Time Temp Pulse Resp B/P (MAP) Pulse Ox O2 Delivery O2 Flow Rate FiO2 08/21/19 14:24 99.5 89 18 140/73 99 Vital signs reviewed: Yes Physical Exam CONSTITUTIONAL Constitutional: well-developed, well-nourished HENT HENT: normocephalic, atraumatic, oropharynx clear/moist, nose normal HENT L/R: left ext ear normal, right ext ear normal EYES Eyes: PERRL, conjunctivae normal NECK Neck: ROM normal PULMONARY Pulmonary: effort normal, breath sounds normal CARDIOVASCULAR Cardiovascular: regular rhythm, heart sounds normal, capillary refill normal, normal rate GASTROINTESTINAL Abdominal: soft, bowel sounds normal, tender (+suprapubic, output noted in smalls, no surrounding cellulitis) GENITOURINARY Genitourinary: exam deferred SKIN Skin: warm, dry MUSCULOSKELETAL Musculoskeletal: ROM normal NEUROLOGICAL Neurological: alert, oriented x 3, no gross motor or sensory deficits PSYCHOLOGICAL Psychological: mood/affect normal, judgement normal Results Laboratory Result Diagram: 08/21/19 1628 08/21/19 1628 Laboratory Laboratory Tests Test 08/21/19 16:28 08/21/19 14:55 White Blood Count 6.37 x10e3/uL (4.8-10.8) Red Blood Count 4.69 x10e6/uL (3.6-5.1) Hemoglobin 13.1 g/dL (12.0-16.0) Hematocrit 42.0 % (34.2-44.1) Mean Corpuscular Volume 89.6 fL (81-99) Mean Corpuscular Hemoglobin 27.9 pg (28-32) Mean Corpuscular Hemoglobin Concent 31.2 g/dL (31-35) Red Cell Distribution Width 12.4 % (11.7-14.4) Platelet Count 426 x10e3/uL (140-360) Neutrophils (%) (Auto) 36.3 % (38.7-80.0) Lymphocytes (%) (Auto) 55.3 % (18.0-39.1) Monocytes (%) (Auto) 4.1 % (4.4-11.3) Eosinophils (%) (Auto) 3.1 % (0.0-6.0) Basophils (%) (Auto) 0.9 % (0.0-1.0) Neutrophils # (Auto) 2.3 (2.1-6.9) Lymphocytes # (Auto) 3.5 (1.0-3.2) Monocytes # (Auto) 0.3 (0.2-0.8) Eosinophils # (Auto) 0.2 (0.0-0.4) Basophils # (Auto) 0.1 (0.0-0.1) Absolute Immature Granulocyte (auto 0.02 x10e3/uL (0-0.1) Sodium Level 139 mmol/L (136-145) Potassium Level 5.3 mmol/L (3.5-5.1) Chloride Level 106 mmol/L (98-107) Carbon Dioxide Level 24 mmol/L (22-29) Anion Gap 14.3 mmol/L (8-16) Blood Urea Nitrogen 8 mg/dL (7-26) Creatinine 0.93 mg/dL (0.57-1.11) Estimat Glomerular Filtration Rate > 60 ML/MIN (60-) BUN/Creatinine Ratio 9 (6-25) Glucose Level 85 mg/dL (74-118) Calcium Level 9.0 mg/dL (8.4-10.2) Total Bilirubin 0.4 mg/dL (0.2-1.2) Aspartate Amino Transf (AST/SGOT) 37 IU/L (5-34) Alanine Aminotransferase (ALT/SGPT) 15 IU/L (0-55) Alkaline Phosphatase 60 IU/L (40-150) Creatine Kinase 62 IU/L (29-168) Creatine Kinase MB 0.20 ng/mL (0-5.0) Troponin I < 0.001 ng/mL (0-0.300) Total Protein 8.2 g/dL (6.5-8.1) Albumin 3.5 g/dL (3.5-5.0) Globulin 4.7 g/dL (2.3-3.5) Albumin/Globulin Ratio 0.7 (0.8-2.0) Urine Color Yellow (YELLOW) Urine Clarity Sl cloudy (CLEAR) Urine pH 6 (5 - 7) Urine Specific [place] 1.015 (1.010-1.025) Urine Protein Negative (NEGATIVE) Urine Glucose (UA) Negative (NEGATIVE) Urine Ketones Negative (NEGATIVE) Urine Blood Small (NEGATIVE) Urine Nitrite Positive (NEGATIVE) Urine Bilirubin Negative (NEGATIVE) Urine Urobilinogen 0.2 mg/dL (0.2 - 1) Urine Leukocyte Esterase Small (NEGATIVE) Urine RBC 0-5 /HPF (0-5) Urine WBC 6-10 /HPF (0-5) Urine Epithelial Cells Moderate /LPF (NONE) Urine Bacteria Moderate /HPF (NONE) Urine Test Negative (NEGATIVE) Lab results reviewed: Yes Laboratory comments Hyperkalemia noted- Kayexalate given Imaging Imaging results reviewed: Yes Impressions IMPRESSION: 1. No acute abdominal pelvic abnormality. Critical Care Time Subsequent provider I assumed direction of critical care for this patient from another provider of my specialty. Assessment & Plan Assessment & Plan Final Impression: (1) GENERALIZED ABDOMINAL PAIN Assessment & Plan 49 F arrived to the ED with complaints of abdominal pain-diffusely lab work showed mild hyperkalemia which was treated CT AP normal Pt continued to complain of pain while in the ED- admitted for pain control Depart Disposition: ADMITTED Last Vital Signs Date Time Temp Pulse Resp B/P (MAP) Pulse Ox O2 Delivery O2 Flow Rate FiO2 08/21/19 14:24 99.5 89 18 140/73 99 Home Meds Reported Medications Potassium Gluconate (POTASSIUM) 99 Mg Tablet, 99 MG PO QOD 06/21/19 Cholecalciferol (Vitamin D3) (Vitamin D3) 5,000 Unit Tab.rapdis, 57182 U PO WEEKLY 06/21/19 Alendronate Sodium (FOSAMAX) 70 Mg Tablet, 70 MG PO WEEKLY 06/21/19 LAlice Ysabel-LAlice Alyssa-LAlice Esquivel-LAlice Rham (Azo Complete Feminine Balance) 1 Each Capsule, 3 TAB PO DAILY 06/21/19 Baclofen (BACLOFEN) 10 Mg Tablet, 20 MG PO BID, #90 TAB 06/21/19 Albuterol Sulf* (PROAIR HFA INHALER*) 8.5 Gm Inh, 2 INH INH PRN 06/21/19 Nitrofurantoin Monohyd/M-Cryst (MACROBID 100 MG CAPSULE) 100 Mg Capsule, 100 MG PO BID 06/21/19 Mirabegron (MYRBETRIQ) 50 Mg Tab.er.24h, 50 MG PO DAILY 03/10/19 Levothyroxine Sodium (LEVOTHYROXINE SODIUM) 125 Mcg Tablet, 125 MCG PO DAILY 03/10/19 Nitroglycerin (NITROGLYCERIN) 0.4 Mg Tab.subl, 0.4 MG SL PRN, TAB 03/10/19 Escitalopram Oxalate (LEXAPRO) 10 Mg Tablet, 10 MG PO HS, #30 TAB 03/10/19 Pentosan Polysulfate Sodium (ELMIRON) 100 Mg Cap, 100 MG PO QID 03/10/19 Hydrochlorothiazide (MICROZIDE) 12.5 Mg Capsule, 12.5 MG PO DAILY 03/10/19 Olmesartan Medoxomil (BENICAR) 20 Mg Tablet, 20 MG PO DAILY, #30 TAB 03/10/19 Hydrocodone Bit/Acetaminophen (NORCO 10-325 TABLET) 1 Each Tablet, PO PRN 08/22/15 Folic Acid (FOLIC ACID) 1 Mg Tablet, 1 MG PO DAILY, TAB 08/22/15 [Trulicity] No Conflict Check, INJ WKLY 08/22/15 Insulin Human Lispro (HUMALOG) 100 Units/Ml Ml, UNITS INJ SLIDING SCALE 07/03/14 Insulin Glargine (LANTUS) 100 Units/Ml Ml, 23 UNITS INJ HS 07/03/14 Medications in the ED Sodium Polystyrene Sulfonate 30 gm ONCE ONCE PO ; Start 08/21/19 at 19:00; Stop 08/21/19 at 19:01 MORENO COHEN DO Aug 21, 2019 19:25
[2019-08-21] MEDS ORDERED: MORPHINE SULFATE 2 MG/ML SYR 1ML IV PRN (19:30)
--- OUTSIDE RECORDS SUMMARY | 2019-08-21 20:05 | XMS REPORT | Continuity of Care Document ---
Author Author [facility] t Organization [facility] Address [address] [place] [address] Phone Unavailable Care Team Providers Care Shortage Worker Name Role Phone Yolanda TABOR, Piotr PCP Ashwini COHEN AMBICA Attphys Unavailable HAMPEL, OLGA Attphys Unavailable Payers Payer Name Policy Type Policy [...] Treating Clinician Comments Source Penicillins DA Active [place] 2015-09-16 00:00:00 [facility] Sulfa (Sulfonamide Antibiotics) DA Active [place] 2015-09-16 00 :00:00 [facility] cephalexin [place] Active [place] 2015-09-16 00:00:00 [facility] erythromycin base DA Active [place] 2015-09-16 00:00:00 [facility] sulfamethoxazole DA Active [place] 2015-09-16 00:00:00 [facility] trimethoprim DA Active [place] 2015-09-16 00:00:00 [facility] amoxicillin [place] Active [place] 2015-09-16 00:00:00 [facility] Cephalexin Propensity to adverse reactions to drug [...] 2018-06-20 00:00:00 Current drinker of alcohol (finding) Osvaldo Kitchen Smoking Status Start Date Stop Date Source Never smoker Osvaldo Wilde t Medications Ordered Medication Name Filled Medication Name Start Date Stop Da te Current Medication? Ordering Clinician Indication Dosage Frequency Signature (SIG) Comments Components Source methocarbamol (ROBAXIN) 500 MG tablet 2018-06-20 00:00:00 Yes 500mg [id number] Take 1 tablet (500 mg total) by [...] INJECT 23 UNITS SUBCUTANEOUSLY ONCE DAILY Osvaldo monge insulin syringe-needle U-100 0.3 mL 31 x [...] 00:00:00 URINE MICROALBUMIN [code = URINE MICROALBUMIN] Riley Imtiaz Future Scheduled Test 1993 00:00:00 Screening for karan gnant neoplasm of cervix (procedure) [code = 516905413] Riley Andry t Future Scheduled Test 1982 00:00:00 DIABETIC FOOT EXAM [code = DIABETIC FOOT EXAM] Riley Imtiaz Future Scheduled Test 1972 00:00:00 DIABETIC RETINAL E YE EXAM [code = DIABETIC RETINAL EYE EXAM] Holland Imtiaz Results Test Description Test Time Test Comments Results Result Comments Source CT ABDOMEN/PELVIS WO 2019-08-21 18:50:00 [place] [address] Patient Name: ELVIA VEGA MR #: [id number] : 1970 Age/Sex: 49/F Req #: [id number] Adm Physician: Ordered by: MORENO COHEN DO Report #: [id number] Location: ER Room/Bed: Procedure: [id number] CT/CT ABDOMEN/PELVIS WO Exam Date: Exam Time: REPORT STATUS: Signed EXAM: CT Abdomen and Pelvis WITHOUT contrast INDICATION: Abdominal pain. Pain urethra. COMPARISON:. TECHNIQUE: Abdomen and pelvis were scanned utilizing a multidetector helical scanner from the lung base to the pubic symphysis without administration of IV contrast. Absence of intravenous contrast decreases sensitivity or detection of focal lesions and vascular pathology. Coronal and sagittal reformations were obtained. Routine protocol was performed. IV CONTRAST: None. ORAL CONTRAST: Gastrografin water mixture. RADIATION DOSE: Total DLP: 439.91 mGy*cm Estimated effective dose: (DLP x 0.015 x size factor) mSv COMPLICATIONS: None FINDINGS: LINES and TUBES: Suprapubic bladder catheter appears in adequate position, however patency cannot be evaluated with this noncontrast examination.. LOWER THORAX: Unremarkable HEPATOBILIARY: No focal hepatic lesions. No biliary ductal dilation. GALLBLADDER: No radio-opaque stones or sludge. No wall thickening. SPLEEN: No splenomegaly. PANCREAS: No focal masses or ductal dilatation. ADRENALS: No adrenal nodules KIDNEYS/URETERS: No hydronephrosis. No cystic or solid mass lesions. No stones. GI TRACT: No abnormal distention, wall thickening, or evidence of bowel obstruction. Appendix is normal. PELVIC ORGANS/BLADDER: The uterus is absent. Bilateral INTERSTIM devices. Multiple phleboliths scattered throughout the pelvis. LYMPH NODES: No lymphadenopathy. VESSELS: Unremarkable. PERITONEUM / RETROPERITONEUM: No free air or fluid. BONES: Unremarkable. SOFT TISSUES: Unremarkable. IMPRESSION: 1. No acute abdominal pelvic abnormality. Signed by: Dr. Tiera Faust M.D. on 08/21/2019 6:57 PM Dictated By: OLI FAUST MD, MD 56 Transcribed By: JAMA on 08/21/191856 COPY TO: MORENO COHEN, CHEST 2 VIEWS 2019-03-10 12:21:00 [place] [address] Patient Name: ELVIA VEGA MR #: [id number] : 1970 Age/Sex: 49/F Req #: [id number] Adm Physician: Ordered by: OLGA KING MD Report #: [id number] Location: OR Room/Bed: Procedure: [id number] DX/CHEST 2 VIEWS Exam Date: 03/10/19 Exam [...] 12:21 PM Dictated By: JAGDISH VIDAL MD 20 Transcribed By: JAMA on 03/10/191220 COPY TO: OLGA KING MD PELVIS AP 1-2 VIEWS 2019-01-26 13:44:00 [place] [address] Patient Name: ELVIA VEGA MR #: [id number] : 1970 Age/Sex: 48/F Req #: [id number] Adm Physician: Ordered by: OLGA KING MD Report #: [id number] Location: [facility] Room/Bed: Procedure: [id number] DX/PELVIS AP 1-2 VIEWS Exam Date: Exam [...] 1:46 PM Dictated By: CROW MAHAJAN MD Transcribed By: JAMA on 01/26/191345 COPY TO: OLGA KING MD SACRUM X-RAY 2019-01-26 13:44:00 [place] [address] Patient Name: ELVIA VEGA MR #: [id number] : 1970 Age/Sex: 48/F Req #: [id number] Adm Physician: Ordered by: OLGA KING MD Report #: [id number] Location: [facility] Room/Bed: Procedure: [id number] DX/SACRUM X-RAY Exam Date: Exam Time: REPORT [...] KING MD RENAL RETROPERITONEAL COMP 2019-01-16 10:33:00 [place] [address] Patient Name: ELVIA VEGA MR #: [id number] : 1970 Age/Sex: 48/F Req #: [id number] [facility] Physician: Ordered by: OLGA KING MD Report #: [id number] Location: Room/Bed: Procedure: [id number] US/US RENAL RETROPERITONEAL COMP Exam Date: 01/16/19 [...] MD 1035 Transcribed By: JAMA on 01/16/19 1034 COPY TO: OLGA KING MD
--- OUTSIDE RECORDS SUMMARY | 2019-08-21 20:05 | XMS REPORT | Clinical Summary ---
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
[2019-08-21] MEDS: HYDROCODONE/APAP 10MG-325MG TAB PO PRN (20:36)
[2019-08-21] MEDS: ONDANSETRON HCL INJ 2MG/ML 2ML 2 MG/ML VIAL IV PRN (20:36)
--- NOTE | 2019-08-21 22:58 | NUR ---
Received patient from ER in stable condition. Patient awake and resting in bed, no s/s of distress at this time. Mild drainage to suprapubic catheter insertion site noted. Belly bag in place. All safety measures in place. Will continue to monitor.
[2019-08-22] VITALS (10 sets, daily range): BP systolic 95–124; BP diastolic 59–75
[2019-08-22] MEDS: HYDROCODONE/APAP 10MG-325MG TAB PO PRN ×4 (01:13→19:04)
[2019-08-22] MEDS: ONDANSETRON HCL INJ 2MG/ML 2ML 2 MG/ML VIAL IV PRN ×3 (01:18→19:06)
[2019-08-22 05:51] LABS: BASOPHILS # (AUTO) 0.1 (0.0-0.1); BASOPHILS % 0.8 % (0.0-1.0); EOSINOPHILS # (AUTO) 0.3 (0.0-0.4); EOSINOPHILS % 3.2 % (0.0-6.0); HEMOGLOBIN 11.2 g/dL (12.0-16.0); LYMPHOCYTES # (AUTO) 4.8 (1.0-3.2); LYMPHOCYTES % 57.9 % (18.0-39.1); MEAN CORPUSCULAR HEMOGLOBIN 27.3 pg (28-32); MEAN CORPUSCULAR HGB CONC 30.3 g/dL (31-35); MEAN CORPUSCULAR VOLUME 90.2 fL (81-99); MONOCYTES # (AUTO) 0.4 (0.2-0.8); MONOCYTES % 5.2 % (4.4-11.3); NEUTROPHILS # (AUTO) 2.7 (2.1-6.9); NEUTROPHILS % 32.5 % (38.7-80.0); PLATELET COUNT 405 x10e3/uL (140-360); RED CELL DISTRIBUTION WIDTH 12.4 % (11.7-14.4)
--- NOTE | 2019-08-22 07:03 | NUR ---
Bedside report given to oncoming nurse. Patient awake and resting in bed, no s/s of distress at this time. All safety measures in place.
--- NOTE | 2019-08-22 07:04 | NUR ---
BEDSIDE SHIFT REPORT RECEIVED FROM SPARERIBS TRIMMER NURSE. PT AWAKE, ALERT, ORIENTED, NO SIGNS OF DISTRESS. WILL CONTINUE TO MONITOR.
[2019-08-22] MEDS ORDERED: NON-FORMULARY MEDICATION (Hydrochlorothiazide (Microzide) 12.5 MG) PO SCH (09:00)
[2019-08-22] MEDS ORDERED: OLMESARTAN 20 MG TAB PO SCH (09:00)
[2019-08-22] MEDS ORDERED: CEFTRIAXONE SOD 1 GM/NS 50 ML 50 ML IV SCH (09:00)
[2019-08-22] MEDS ORDERED: HYDRALAZINE HCL 20 MG/ML VIAL IV PRN (09:00)
[2019-08-22] MEDS ORDERED: ACETAMINOPHEN 325 MG TAB PO PRN (09:00)
[2019-08-22] MEDS ORDERED: DEXTROSE 50% SYRINGE 50 ML IV PRN (09:00)
[2019-08-22] MEDS ORDERED: PENTOSAN POLYSULFATE SODIUM 100 MG CAP PO SCH (09:00)
[2019-08-22 09:57] LABS: ALANINE AMINOTRANSFERASE 14 IU/L (0-55); ALBUMIN 3.2 g/dL (3.5-5.0); ALBUMIN/GLOBULIN RATIO 0.9 (0.8-2.0); ALKALINE PHOSPHATASE 65 IU/L (40-150); ANION GAP 12.2 mmol/L (8-16); BLOOD UREA NITROGEN 8 mg/dL (7-26); BUN/CREATININE RATIO 9 (6-25); CALCIUM 8.4 mg/dL (8.4-10.2); CARBON DIOXIDE 24 mmol/L (22-29); CHLORIDE 106 mmol/L (98-107); CREATININE, SERUM 0.85 mg/dL (0.57-1.11); EST GLOMERULAR FILTRATION RATE > 60 ML/MIN (60-); GLUCOSE 94 mg/dL (74-118); MAGNESIUM 2.1 MG/DL (1.3-2.1); POTASSIUM 3.2 mmol/L (3.5-5.1); SODIUM 139 mmol/L (136-145)
[2019-08-22 10:17] LABS: THYROID STIMULATING HORMONE 1.073 uIU/mL (0.350-4.940)
[2019-08-22] MEDS: NON-FORMULARY MEDICATION (Mirabegron (Myrbetriq) 50 MG) PO SCH (11:00)
[2019-08-22] MEDS: INSULIN LISPRO 100 UNIT/1 ML 3ML VIAL SQ SCH ×3 (11:30→21:24)
[2019-08-22] MEDS: LEVOTHYROXINE SODIUM 125 MCG TAB PO SCH (12:49)
[2019-08-22] MEDS: FOLIC ACID 1 MG TAB PO SCH (12:49)
[2019-08-22] MEDS: FAMOTIDINE 20 MG/2 ML VIAL IV SCH ×2 (12:52→18:38)
[2019-08-22] MEDS ORDERED: SODIUM CHLORIDE 0.9% 250ML 250 ML ONE (13:06)
[2019-08-22] MEDS: MEROPENEM 500MG/ NS 50ML 50 ML IV SCH ×3 (13:08→21:24)
[2019-08-22 14:10] LABS: CLARITY,URINE CLOUDY (CLEAR); COLOR,URINE YELLOW (YELLOW); KETONES,URINE NEGATIVE (NEGATIVE); LEUKOCYTE ESTERASE ,URINE SMALL (NEGATIVE); NITRITE,URINE POSITIVE (NEGATIVE); PROTEIN,URINE DIPSTICK NEGATIVE (NEGATIVE); URINE UROBILINOGEN 0.2 mg/dL (0.2 - 1)
[2019-08-22 14:11] LABS: BILIRUBIN,URINE NEGATIVE (NEGATIVE)
[2019-08-22 14:21] LABS: BACTERIA,URINE FEW /HPF; EPITHELIAL CELLS,URINE FEW /LPF
[2019-08-22] MEDS: ALBUTEROL/IPRATROPIUM 3 ML NEB NEB PRN ×2 (16:30→23:00)
[2019-08-22] MEDS ORDERED: POTASSIUM CHLORIDE 20 MEQ TAB CR PO SCH (16:45)
--- NOTE | 2019-08-22 19:00 | NUR ---
Resumed care of patient. Patient awake and sitting up in bed, requesting pain medication. PRN Plush administered. All safety measures in place. Will continue to monitor.
[2019-08-22] MEDS: ELMIRON 100 MG PO SCH (21:00)
[2019-08-22] MEDS: ESCITALOPRAM OXALATE 10 MG TAB PO SCH (21:24)
[2019-08-22] MEDS: INSULIN GLARGINE 100 UNITS/ML VIAL SQ SCH (21:24)
[2019-08-23] VITALS (8 sets, daily range): BP systolic 100–117; BP diastolic 55–65
[2019-08-23] MEDS: HYDROCODONE/APAP 10MG-325MG TAB PO PRN ×2 (05:21→12:16)
[2019-08-23] MEDS: LEVOTHYROXINE SODIUM 125 MCG TAB PO SCH (05:21)
[2019-08-23] MEDS: MEROPENEM 500MG/ NS 50ML 50 ML IV SCH ×3 (05:21→20:55)
[2019-08-23] MEDS: ONDANSETRON HCL INJ 2MG/ML 2ML 2 MG/ML VIAL IV PRN (05:21)
[2019-08-23 05:52] LABS: BASOPHILS # (AUTO) 0.1 (0.0-0.1); BASOPHILS % 0.7 % (0.0-1.0); EOSINOPHILS # (AUTO) 0.2 (0.0-0.4); EOSINOPHILS % 2.6 % (0.0-6.0); HEMATOCRIT 33.3 % (34.2-44.1); HEMOGLOBIN 10.3 g/dL (12.0-16.0); LYMPHOCYTES # (AUTO) 4.4 (1.0-3.2); LYMPHOCYTES % 54.6 % (18.0-39.1); MEAN CORPUSCULAR HEMOGLOBIN 27.7 pg (28-32); MEAN CORPUSCULAR HGB CONC 30.9 g/dL (31-35); MEAN CORPUSCULAR VOLUME 89.5 fL (81-99); MONOCYTES # (AUTO) 0.4 (0.2-0.8); MONOCYTES % 4.4 % (4.4-11.3); NEUTROPHILS % 37.5 % (38.7-80.0); PLATELET COUNT 396 x10e3/uL (140-360); RED BLOOD COUNT 3.72 x10e6/uL (3.6-5.1); RED CELL DISTRIBUTION WIDTH 12.4 % (11.7-14.4)
[2019-08-23 06:16] LABS: ALANINE AMINOTRANSFERASE 9 IU/L (0-55); ALBUMIN/GLOBULIN RATIO 0.9 (0.8-2.0); ALKALINE PHOSPHATASE 64 IU/L (40-150); BLOOD UREA NITROGEN 10 mg/dL (7-26); BUN/CREATININE RATIO 11 (6-25); CALCIUM 8.2 mg/dL (8.4-10.2); CARBON DIOXIDE 27 mmol/L (22-29); CHLORIDE 107 mmol/L (98-107); CREATININE, SERUM 0.94 mg/dL (0.57-1.11); EST GLOMERULAR FILTRATION RATE > 60 ML/MIN (60-); GLUCOSE 83 mg/dL (74-118); SODIUM 143 mmol/L (136-145)
--- NOTE | 2019-08-23 07:04 | NUR ---
Bedside report given to day nurse. Patient awake and resting in bed, no s/s of distress at this time. All safety measures in place.
[2019-08-23] MEDS: INSULIN LISPRO 100 UNIT/1 ML 3ML VIAL SQ SCH ×4 (07:30→21:00)
[2019-08-23] MEDS: NON-FORMULARY MEDICATION (Mirabegron (Myrbetriq) 50 MG) PO SCH (09:00)
[2019-08-23] MEDS: ELMIRON 100 MG PO SCH ×4 (09:00→20:06)
[2019-08-23] MEDS ORDERED: POTASSIUM CHLORIDE 20MEQ/100ML 200 ML IV ONE (09:00)
[2019-08-23] MEDS: FAMOTIDINE 20 MG/2 ML VIAL IV SCH ×2 (09:05→18:20)
[2019-08-23] MEDS: FOLIC ACID 1 MG TAB PO SCH (09:08)
[2019-08-23] MEDS ORDERED: SODIUM CHLORIDE 0.9% 250ML 250 ML ONE (15:16)
[2019-08-23] MEDS: ESCITALOPRAM OXALATE 10 MG TAB PO SCH (20:06)
[2019-08-23] MEDS: ALBUTEROL/IPRATROPIUM 3 ML NEB NEB PRN (20:40)
[2019-08-23] MEDS: INSULIN GLARGINE 100 UNITS/ML VIAL SQ SCH (21:18)
[2019-08-24] VITALS (13 sets, daily range): BP systolic 108–119; BP diastolic 61–93
[2019-08-24 05:38] LABS: BASOPHILS # (AUTO) 0.1 (0.0-0.1); BASOPHILS % 0.9 % (0.0-1.0); EOSINOPHILS # (AUTO) 0.4 (0.0-0.4); EOSINOPHILS % 4.7 % (0.0-6.0); HEMATOCRIT 32.2 % (34.2-44.1); HEMOGLOBIN 9.9 g/dL (12.0-16.0); LYMPHOCYTES # (AUTO) 4.7 (1.0-3.2); LYMPHOCYTES % 61.8 % (18.0-39.1); MEAN CORPUSCULAR HEMOGLOBIN 28.1 pg (28-32); MEAN CORPUSCULAR HGB CONC 30.7 g/dL (31-35); MEAN CORPUSCULAR VOLUME 91.5 fL (81-99); MONOCYTES # (AUTO) 0.3 (0.2-0.8); MONOCYTES % 4.1 % (4.4-11.3); NEUTROPHILS # (AUTO) 2.2 (2.1-6.9); NEUTROPHILS % 28.4 % (38.7-80.0); PLATELET COUNT 363 x10e3/uL (140-360); RED BLOOD COUNT 3.52 x10e6/uL (3.6-5.1); RED CELL DISTRIBUTION WIDTH 12.5 % (11.7-14.4)
[2019-08-24] MEDS: MEROPENEM 500MG/ NS 50ML 50 ML IV SCH ×3 (05:48→20:56)
[2019-08-24] MEDS: LEVOTHYROXINE SODIUM 125 MCG TAB PO SCH (05:49)
[2019-08-24 05:54] LABS: ALANINE AMINOTRANSFERASE 8 IU/L (0-55); ALBUMIN 2.8 g/dL (3.5-5.0); ALBUMIN/GLOBULIN RATIO 0.8 (0.8-2.0); ALKALINE PHOSPHATASE 51 IU/L (40-150); ANION GAP 10.6 mmol/L (8-16); BLOOD UREA NITROGEN 13 mg/dL (7-26); BUN/CREATININE RATIO 14 (6-25); CALCIUM 8.4 mg/dL (8.4-10.2); CARBON DIOXIDE 25 mmol/L (22-29); CHLORIDE 109 mmol/L (98-107); CREATININE, SERUM 0.94 mg/dL (0.57-1.11); EST GLOMERULAR FILTRATION RATE > 60 ML/MIN (60-); GLUCOSE 86 mg/dL (74-118); POTASSIUM 3.6 mmol/L (3.5-5.1); SODIUM 141 mmol/L (136-145)
[2019-08-24] MEDS: HYDROCODONE/APAP 10MG-325MG TAB PO PRN ×3 (05:56→21:08)
[2019-08-24] MEDS: INSULIN LISPRO 100 UNIT/1 ML 3ML VIAL SQ SCH ×4 (07:30→20:51)
[2019-08-24 07:57] LABS: EOSINOPHILS % (MANUAL) 7 % (0-7); LYMPHOCYTES % (MANUAL) 59 % (19-48); MONOCYTES % (MANUAL) 2 % (3.4-9.0); NEUTROPHILS % (MANUAL) 32 % (40-74); PLATELET ESTIMATE SLIGHTLY INCREASED; PLATELET MORPHOLOGY COMMENT NORMAL; RBC MORPHOLOGY COMMENT NORMAL
[2019-08-24] MEDS: ELMIRON 100 MG PO SCH ×4 (09:00→20:56)
[2019-08-24] MEDS: NON-FORMULARY MEDICATION (Mirabegron (Myrbetriq) 50 MG) PO SCH (09:00)
[2019-08-24] MEDS: FAMOTIDINE 20 MG/2 ML VIAL IV SCH ×3 (09:00→20:56)
[2019-08-24] MEDS: FOLIC ACID 1 MG TAB PO SCH (09:17)
[2019-08-24] MEDS ORDERED: DIPHENHYDRAMINE HCL 30 GM TUBE TOP PRN (10:00)
[2019-08-24] MEDS: CIPROFLOXACIN-DEXAMETHASONE (OTIC) 7.5 ML BOTTLE OT SCH ×2 (11:40→17:06)
--- NOTE | 2019-08-24 19:15 | NUR ---
RECEIVED REPORT FROM PREVIOUS NURSE. CALL LIGHT WITHIN REACH. PATIENT IN BED. ROUNDING DONE ON PATIENT WITH PREVIOUS NURSE.
[2019-08-24] MEDS: ESCITALOPRAM OXALATE 10 MG TAB PO SCH (20:56)
[2019-08-24] MEDS: INSULIN GLARGINE 100 UNITS/ML VIAL SQ SCH (21:08)
[2019-08-25] VITALS: BP 104/57
[2019-08-25 04:00] VITALS: BP 97/65
[2019-08-25] MEDS: LEVOTHYROXINE SODIUM 125 MCG TAB PO SCH (05:29)
[2019-08-25] MEDS: MEROPENEM 500MG/ NS 50ML 50 ML IV SCH (05:29)
[2019-08-25 05:42] LABS: BASOPHILS # (AUTO) 0.1 (0.0-0.1); BASOPHILS % 1.1 % (0.0-1.0); EOSINOPHILS # (AUTO) 0.4 (0.0-0.4); EOSINOPHILS % 5.3 % (0.0-6.0); HEMATOCRIT 34.7 % (34.2-44.1); HEMOGLOBIN 10.7 g/dL (12.0-16.0); LYMPHOCYTES % 65.6 % (18.0-39.1); MEAN CORPUSCULAR HEMOGLOBIN 27.6 pg (28-32); MEAN CORPUSCULAR HGB CONC 30.8 g/dL (31-35); MEAN CORPUSCULAR VOLUME 89.4 fL (81-99); MONOCYTES # (AUTO) 0.4 (0.2-0.8); NEUTROPHILS # (AUTO) 1.7 (2.1-6.9); NEUTROPHILS % 22.7 % (38.7-80.0); PLATELET COUNT 371 x10e3/uL (140-360); RED BLOOD COUNT 3.88 x10e6/uL (3.6-5.1); RED CELL DISTRIBUTION WIDTH 12.4 % (11.7-14.4)
[2019-08-25 06:25] LABS: ALANINE AMINOTRANSFERASE 8 IU/L (0-55); ALBUMIN/GLOBULIN RATIO 0.9 (0.8-2.0); ALKALINE PHOSPHATASE 53 IU/L (40-150); ANION GAP 9.3 mmol/L (8-16); BLOOD UREA NITROGEN 13 mg/dL (7-26); BUN/CREATININE RATIO 15 (6-25); CALCIUM 8.6 mg/dL (8.4-10.2); CARBON DIOXIDE 27 mmol/L (22-29); CHLORIDE 108 mmol/L (98-107); CREATININE, SERUM 0.87 mg/dL (0.57-1.11); EST GLOMERULAR FILTRATION RATE > 60 ML/MIN (60-); GLUCOSE 75 mg/dL (74-118); POTASSIUM 3.3 mmol/L (3.5-5.1); SODIUM 141 mmol/L (136-145)
--- NOTE | 2019-08-25 06:46 | NUR ---
GAVE BEDSIDE SHIFT REPORT TO JOHNNIE ESPINOZA. CALL LIGHT WITHIN REACH. PATIENT IN BED. Addendum: 08/25/19 at 0646 by Reyna Shultz RN PATIENT ASLEEP IN BED
--- NOTE | 2019-08-25 07:00 | NUR ---
RECEIVED PATIENT RESTING IN BED NO S/S OF DISTRESS. BED LOW, WHEELS LOCKED, SIDE RAILS X2. CALL LIGHT IN REACH WILL CONTINUE TO MONITOR PATIENT.
[2019-08-25] MEDS: INSULIN LISPRO 100 UNIT/1 ML 3ML VIAL SQ SCH ×2 (07:30→11:30)
[2019-08-25 08:13] VITALS: BP 103/64
[2019-08-25] MEDS ORDERED: LEVOFLOXACIN 500MG/D5W 100ML 100 ML IV SCH (08:30)
[2019-08-25] MEDS: NON-FORMULARY MEDICATION (Mirabegron (Myrbetriq) 50 MG) PO SCH (08:41)
[2019-08-25] MEDS ORDERED: LEVAQUIN500 MG PO (08:48)
[2019-08-25] MEDS: CIPROFLOXACIN-DEXAMETHASONE (OTIC) 7.5 ML BOTTLE OT SCH (08:50)
[2019-08-25] MEDS: ELMIRON 100 MG PO SCH ×2 (08:50→09:00)
[2019-08-25] MEDS: FAMOTIDINE 20 MG/2 ML VIAL IV SCH (08:50)
[2019-08-25] MEDS: FOLIC ACID 1 MG TAB PO SCH (08:50)
[2019-08-25] MEDS: HYDROCODONE/APAP 10MG-325MG TAB PO PRN (08:54)
[2019-08-25 09:09] VITALS: BP 103/64
--- NOTE | 2019-08-25 11:05 | NUR ---
DR. KING MAKING ROUNDS SUPRAPUBIC CATHETER CHANGED AT BEDSIDE.
--- NOTE | 2019-08-25 11:30 | NUR ---
REMOVED PATIENTS IV. CATHETER TIP INTACT AND PRESSURE DRESSING APPLIED.
--- NOTE | 2019-08-25 12:10 | NUR ---
PATIENT DISCHARGED FROM FACILITY. PATIENT GATHERED ALL PERSONAL BELONGINGS, DISCHARGE INSTRUCTIONS AND FOLLOW UP INFORMATION. LEFT UNIT IN WHEELCHAIR AND WENT HOME VIA PRIVATE AUTO.
--- NOTE | 2019-08-26 01:57 | Discharge Summary ---
ADMISSION DIAGNOSES: 1. Urinary tract infection, present on admission secondary suprapubic catheter. 2. Hypertension. 3. Type 2 diabetes. 4. Hypothyroidism. 5. Lupus. 6. Rheumatoid arthritis. 7. Neurogenic bladder. DISCHARGE DIAGNOSES: 1. Urinary tract infection, present on admission secondary suprapubic catheter. 2. Hypertension. 3. Type 2 diabetes. 4. Hypothyroidism. 5. Lupus. 6. Rheumatoid arthritis. 7. Neurogenic bladder. 8. Acinetobacter urinary tract infection, present on admission. HISTORY: Hypertension, type 2 diabetes, COPD, hypothyroidism, anxiety, lupus, RA, and neurogenic bladder. SURGICAL HISTORY: Neurogenic bladder with suprapubic catheter, cholecystectomy, hysterectomy, and bladder pacer. FAMILY HISTORY: Unknown as the patient is adopted. SOCIAL HISTORY: The patient admits to occasional alcohol use. HOSPITAL COURSE: A 49-year-old female, admits with complaints of abdominal pain around the suprapubic catheter and urethral pain for few days. She had associated hematuria and fever of 100.1. She used Macrobid with no relief. On admission, the patient was started on Rocephin and Urology was consulted. CT of the abdomen and pelvis showed no acute pelvic abnormalities. Urine culture came back positive for Acinetobacter. She was discharged home with new prescription for Levaquin. Prior to discharge, her suprapubic catheter was exchanged per Urology recommendation. She will follow up with primary care and Urology in 1 to 2 weeks. The patient understands instructions and agrees to plan. Dictated by Carolyne Terrell NP MD CAMILLE Aparicio/KARINAL /[id number]
== END 2019-08-25 12:10 | disposition home or self-care (01) | DRG 699 ==
LOC: ER 14:11 → ERHOLD 20:02 → MED/SURG 22:56 → OBSVTOIN 08-22 09:22
PROVIDERS: ADMIT Internal Medicine; ATTEND Internal Medicine
DX: T83.511A Infection and inflammatory reaction due to indwelling urethral catheter, initial encounter (principal); M32.11 Endocarditis in systemic lupus erythematosus; I10 Essential (primary) hypertension; E03.9 Hypothyroidism, unspecified; M06.9 Rheumatoid arthritis, unspecified; N31.9 Neuromuscular dysfunction of bladder, unspecified; M32.9 Systemic lupus erythematosus, unspecified; B96.89 Other specified bacterial agents as the cause of diseases classified elsewhere; E11.9 Type 2 diabetes mellitus without complications; J44.9 Chronic obstructive pulmonary disease, unspecified
CPT/HCPCS: 36415; 74176; 80053; 81001; 81025; 82550; 82553; 82948; 83036; 83690; 83735; 84443; 84484; 85025; 87086; 87186; 87635; 96372; 99284; G0378; J1815; J1956; J2405; J3480; J7050

== ENCOUNTER → 2020-01-19 | Day surgery (SDC) | payer MEDICARE ==
[2020-01-16 10:13] LABS: BASOPHILS # (AUTO) 0.1 (0.0-0.1); BASOPHILS % 0.7 % (0.0-1.0); EOSINOPHILS # (AUTO) 0.3 (0.0-0.4); EOSINOPHILS % 3.1 % (0.0-6.0); HEMATOCRIT 36.9 % (34.2-44.1); HEMOGLOBIN 11.3 g/dL (12.0-16.0); LYMPHOCYTES # (AUTO) 4.6 (1.0-3.2); LYMPHOCYTES % 57.4 % (18.0-39.1); MEAN CORPUSCULAR HGB CONC 30.6 g/dL (31-35); MEAN CORPUSCULAR VOLUME 91.3 fL (81-99); MONOCYTES # (AUTO) 0.5 (0.2-0.8); MONOCYTES % 5.7 % (4.4-11.3); NEUTROPHILS # (AUTO) 2.6 (2.1-6.9); NEUTROPHILS % 32.4 % (38.7-80.0); PLATELET COUNT 448 x10e3/uL (140-360); RED BLOOD COUNT 4.04 x10e6/uL (3.6-5.1); RED CELL DISTRIBUTION WIDTH 13.1 % (11.7-14.4)
[2020-01-16 10:36] LABS: ANION GAP 12.3 mmol/L (8-16); BLOOD UREA NITROGEN 16 mg/dL (7-26); BUN/CREATININE RATIO 16 (6-25); CALCIUM 8.6 mg/dL (8.4-10.2); CARBON DIOXIDE 24 mmol/L (22-29); CHLORIDE 106 mmol/L (98-107); CREATININE, SERUM 0.99 mg/dL (0.57-1.11); EST GLOMERULAR FILTRATION RATE > 60 ML/MIN (60-); GLUCOSE 123 mg/dL (74-118); POTASSIUM 3.3 mmol/L (3.5-5.1); SODIUM 139 mmol/L (136-145)
[~2020-01-19] MED LIST changes: +B&O 60MG R/S 60 MG SUPP PR ONE; +BOTULINUM TOXIN TYPE A 100 UNIT VIAL IM ONE; +CLONAZEPAM1 MG PO; +DEXAMETHASONE SOD PHOS INJ 4 MG/ML VIAL ONE; +EPHEDRINE SULFATE INJ 50 MG/ML VIAL ONE; +FENTANYL CITRATE/PF 100MCG/2 ML INJ ONE; +FOLIC ACID0.8 MG PO; +GABAPENTIN100 MG PO; +GABAPENTIN300 MG PO; +GENTAMICIN 80MG/NS 100 ML 100 ML IV ONE; +IOPAMIDOL 300MG/ML 50ML INFUS..BTL IV ONE; +LAMICTAL100 MG PO; +LEVAQUIN500 MG PO; +LEVOFLOXACIN250 MG PO; +LEXAPRO5 MG PO; +LIDOCAINE HCL 2% LOCAL INJ 5 ML SDV VIAL INJ ONE; +MICROBID; +MICROZIDE; +MORPHINE SULFATE INJ 4 MG/ML INJ 1ML ONE; +ONDANSETRON HCL INJ 2MG/ML 2ML 2 MG/ML VIAL ONE; +OXYBUTYNIN CHLOR5 MG PO; +PLAQUENIL200 MG PO; +PROPOFOL IV EMULSION 10 MG/ML 20 ML VIAL ONE; +SEROQUEL100 MG PO; +SEVOFLURANE INHAL SOLN 250 ML PEN BTL ONE; +TRULICITY1.5 MG/0.5 SC; +TYLENOL # 31 EA PO; +VITAMIN D PO; +[UNRECOGNIZED DRUG - OTHER]
[2020-01-19 14:05] VITALS: BP 117/66
== END | disposition home or self-care (01) ==
LOC: OR 10:25
PROVIDERS: ATTEND Urology
DX: N39.41 Urge incontinence (principal); N31.2 Flaccid neuropathic bladder, not elsewhere classified; N39.0 Urinary tract infection, site not specified; N81.10 Cystocele, unspecified; N36.41 Hypermobility of urethra; N32.89 Other specified disorders of bladder; Z43.5 Encounter for attention to cystostomy; Z96.82 Presence of neurostimulator; R81 Glycosuria; R35.1 Nocturia; Z87.442 Personal history of urinary calculi; E66.9 Obesity, unspecified; I10 Essential (primary) hypertension; E11.9 Type 2 diabetes mellitus without complications; M06.9 Rheumatoid arthritis, unspecified; J45.909 Unspecified asthma, uncomplicated; E03.9 Hypothyroidism, unspecified; K21.9 Gastro-esophageal reflux disease without esophagitis; F32.9 Major depressive disorder, single episode, unspecified; Z88.0 Allergy status to penicillin; Z88.2 Allergy status to sulfonamides; Z88.1 Allergy status to other antibiotic agents; Z91.041 Radiographic dye allergy status; Z01.810 Encounter for preprocedural cardiovascular examination; Z01.812 Encounter for preprocedural laboratory examination; Z11.59 Encounter for screening for other viral diseases; Z79.4 Long term (current) use of insulin
CPT/HCPCS: 36415 ×2; 51705; 52005; 52287; 74420; 80048; 82948; 85025; 93005; C1758; J0587; J1580; J2270; J3010; Q9967; U0002; J1100; J2001; J2405

== ENCOUNTER 2020-02-23 16:54 | Inpatient (IN) | payer MEDICARE ==
[~2020-02-23] VITALS: Ht 167.6 cm; Wt 89.8 kg
[~2020-02-23 16:54] MED LIST changes: -B&O 60MG R/S 60 MG SUPP PR ONE; -BOTULINUM TOXIN TYPE A 100 UNIT VIAL IM ONE; -DEXAMETHASONE SOD PHOS INJ 4 MG/ML VIAL ONE; -EPHEDRINE SULFATE INJ 50 MG/ML VIAL ONE; -FENTANYL CITRATE/PF 100MCG/2 ML INJ ONE; -GABAPENTIN100 MG PO; -GABAPENTIN300 MG PO; -GENTAMICIN 80MG/NS 100 ML 100 ML IV ONE; -IOPAMIDOL 300MG/ML 50ML INFUS..BTL IV ONE; -LEVOFLOXACIN250 MG PO; -LIDOCAINE HCL 2% LOCAL INJ 5 ML SDV VIAL INJ ONE; -MORPHINE SULFATE INJ 4 MG/ML INJ 1ML ONE; -ONDANSETRON HCL INJ 2MG/ML 2ML 2 MG/ML VIAL ONE; -PROPOFOL IV EMULSION 10 MG/ML 20 ML VIAL ONE; -SEVOFLURANE INHAL SOLN 250 ML PEN BTL ONE; -TRULICITY1.5 MG/0.5 SC; -TYLENOL # 31 EA PO
[2020-02-23] MEDS ORDERED: MORPHINE SULFATE INJ 4 MG/ML INJ 1ML IV STA (17:11)
[2020-02-23] MEDS ORDERED: CIPROFLOXACIN 400 MG/D5W 200ML 200 ML IV SCH (17:30)
[2020-02-23 17:33] LABS: BASOPHILS # (AUTO) 0.1 (0.0-0.1); EOSINOPHILS # (AUTO) 0.4 (0.0-0.4); EOSINOPHILS % 4.1 % (0.0-6.0); HEMATOCRIT 37.1 % (34.2-44.1); HEMOGLOBIN 11.9 g/dL (12.0-16.0); LYMPHOCYTES # (AUTO) 5.7 (1.0-3.2); LYMPHOCYTES % 61.1 % (18.0-39.1); MEAN CORPUSCULAR HEMOGLOBIN 28.1 pg (28-32); MEAN CORPUSCULAR HGB CONC 32.1 g/dL (31-35); MEAN CORPUSCULAR VOLUME 87.5 fL (81-99); MONOCYTES # (AUTO) 0.4 (0.2-0.8); MONOCYTES % 4.2 % (4.4-11.3); NEUTROPHILS # (AUTO) 2.7 (2.1-6.9); NEUTROPHILS % 29.2 % (38.7-80.0); PLATELET COUNT 492 x10e3/uL (140-360); RED BLOOD COUNT 4.24 x10e6/uL (3.6-5.1); RED CELL DISTRIBUTION WIDTH 12.8 % (11.7-14.4)
[2020-02-23 17:52] LABS: ALANINE AMINOTRANSFERASE 8 IU/L (0-55); ALBUMIN 3.8 g/dL (3.5-5.0); ALKALINE PHOSPHATASE 48 IU/L (40-150); ANION GAP 15.7 mmol/L (8-16); BLOOD UREA NITROGEN 11 mg/dL (7-26); BUN/CREATININE RATIO 11 (6-25); CALCIUM 8.8 mg/dL (8.4-10.2); CARBON DIOXIDE 25 mmol/L (22-29); CHLORIDE 105 mmol/L (98-107); CREATININE, SERUM 0.97 mg/dL (0.57-1.11); EST GLOMERULAR FILTRATION RATE > 60 ML/MIN (60-); GLUCOSE 116 mg/dL (74-118); POTASSIUM 3.7 mmol/L (3.5-5.1); SODIUM 142 mmol/L (136-145)
[2020-02-23 18:15] LABS: CLARITY,URINE HAZY (CLEAR); COLOR,URINE YELLOW (YELLOW); LEUKOCYTE ESTERASE ,URINE MODERATE (NEGATIVE); NITRITE,URINE POSITIVE (NEGATIVE); PROTEIN,URINE DIPSTICK NEGATIVE (NEGATIVE)
[2020-02-23 18:16] LABS: BILIRUBIN,URINE NEGATIVE (NEGATIVE); KETONES,URINE NEGATIVE (NEGATIVE); URINE UROBILINOGEN 0.2 mg/dL (0.2 - 1)
[2020-02-23 18:20] LABS: WBC,URINE (MAN) 21-50 /HPF (0-5)
[2020-02-23 18:21] LABS: AMORPHOUS SEDIMENT,URINE FEW (FEW); BACTERIA,URINE MANY /HPF; EPITHELIAL CELLS,URINE FEW /LPF; RBC,URINE 21-50 /HPF (0-5)
[2020-02-23 18:22] LABS: MUCUS,URINE FEW (RARE)
[2020-02-23 18:32] LABS: EOSINOPHILS % (MANUAL) 6 % (0-7); LYMPHOCYTES % (MANUAL) 75 % (19-48); MONOCYTES % (MANUAL) 4 % (3.4-9.0); NEUTROPHILS % (MANUAL) 15 % (40-74)
[2020-02-23 18:36] LABS: PLATELET ESTIMATE SLIGHTLY INCREASED
[2020-02-23 18:39] LABS: PLATELET MORPHOLOGY COMMENT FEW GIANT; RBC MORPHOLOGY COMMENT NORMAL
[2020-02-23] MEDS ORDERED: MORPHINE SULFATE INJ 4 MG/ML INJ 1ML IV PRN (18:45)
[2020-02-23] MEDS: ONDANSETRON HCL INJ 2MG/ML 2ML 2 MG/ML VIAL IV PRN (18:55)
[2020-02-23 20:00] VITALS: BP 110/60
[2020-02-23 20:45] VITALS: BP 110/60
[2020-02-23] MEDS: INSULIN GLARGINE 100 UNITS/ML VIAL SQ SCH (21:00)
[2020-02-23] MEDS ORDERED: OXYBUTYNIN CHLORIDE 5 MG TAB PO PRN (21:00)
[2020-02-23] MEDS ORDERED: ACETAMINOPHEN 325 MG TAB PO PRN (21:00)
[2020-02-23] MEDS: INSULIN LISPRO 100 UNIT/1 ML 3ML VIAL SQ SCH (21:00)
[2020-02-23] MEDS ORDERED: ACETAMINOPHEN/CODEINE 300MG - 30MG TAB PO PRN (21:00)
[2020-02-23] MEDS ORDERED: DEXTROSE 50% SYRINGE 50 ML IV PRN (21:00)
[2020-02-23] MEDS ORDERED: BACLOFEN 10 MG TAB PO PRN (21:00)
[2020-02-23] MEDS ORDERED: HYDRALAZINE HCL 20 MG/ML VIAL IV PRN (21:00)
[2020-02-23] MEDS: QUETIAPINE FUMARATE 100 MG TAB PO SCH (22:27)
[2020-02-23 22:32] VITALS: BP 110/60
[2020-02-23] MEDS ORDERED: PHENAZOPYRIDINE HCL 100 MG TAB PO ONE (23:00)
[2020-02-23] MEDS: SODIUM CHLORIDE 0.9% 1000ML 1,000 ML IV SCH (23:08)
[2020-02-23] MEDS ORDERED: GABAPENTIN100 MG PO (23:18)
[2020-02-23] MEDS ORDERED: NITROGLYCERIN0.4 MG SL (23:18)
[2020-02-23] MEDS ORDERED: LEXAPRO5 MG PO (23:18)
[2020-02-23] MEDS ORDERED: TRULICITY1.5 MG/0.5 SC (23:18)
[2020-02-24] VITALS (9 sets, daily range): BP systolic 94–106; BP diastolic 56–70
[2020-02-24 05:42] LABS: BASOPHILS # (AUTO) 0.1 (0.0-0.1); BASOPHILS % 0.9 % (0.0-1.0); EOSINOPHILS # (AUTO) 0.3 (0.0-0.4); LYMPHOCYTES # (AUTO) 3.4 (1.0-3.2); LYMPHOCYTES % 50.3 % (18.0-39.1); MEAN CORPUSCULAR HEMOGLOBIN 28.3 pg (28-32); MEAN CORPUSCULAR HGB CONC 31.4 g/dL (31-35); MONOCYTES # (AUTO) 0.3 (0.2-0.8); NEUTROPHILS # (AUTO) 2.7 (2.1-6.9); NEUTROPHILS % 39.4 % (38.7-80.0); PLATELET COUNT 428 x10e3/uL (140-360); RED BLOOD COUNT 3.89 x10e6/uL (3.6-5.1); RED CELL DISTRIBUTION WIDTH 12.6 % (11.7-14.4)
[2020-02-24 06:13] LABS: ALANINE AMINOTRANSFERASE 12 IU/L (0-55); ALBUMIN 3.2 g/dL (3.5-5.0); ALKALINE PHOSPHATASE 74 IU/L (40-150); ANION GAP 13.6 mmol/L (8-16); BLOOD UREA NITROGEN 13 mg/dL (7-26); BUN/CREATININE RATIO 13 (6-25); CALCIUM 8.1 mg/dL (8.4-10.2); CARBON DIOXIDE 27 mmol/L (22-29); CHLORIDE 105 mmol/L (98-107); CREATININE, SERUM 1.04 mg/dL (0.57-1.11); EST GLOMERULAR FILTRATION RATE > 60 ML/MIN (60-); GLUCOSE 92 mg/dL (74-118); POTASSIUM 3.6 mmol/L (3.5-5.1); SODIUM 142 mmol/L (136-145)
[2020-02-24] MEDS: SODIUM CHLORIDE 0.9% 1000ML 1,000 ML IV SCH (06:30)
[2020-02-24] MEDS: LEVOTHYROXINE SODIUM 125 MCG TAB PO SCH (06:30)
[2020-02-24] MEDS: INSULIN LISPRO 100 UNIT/1 ML 3ML VIAL SQ SCH ×4 (07:30→21:23)
[2020-02-24] MEDS ORDERED: HYDROCHLOROTHIAZIDE 25 MG TAB PO SCH (09:00)
[2020-02-24] MEDS ORDERED: OLMESARTAN 20 MG TAB PO SCH (09:00)
[2020-02-24] MEDS ORDERED: LEVOFLOXACIN 500MG/D5W 100ML 100 ML IV SCH (09:00)
[2020-02-24] MEDS ORDERED: MORPHINE SULFATE 2 MG/ML SYR 1ML IV PRN (10:30)
[2020-02-24] MEDS: ESCITALOPRAM OXALATE 10 MG TAB PO SCH (10:38)
[2020-02-24] MEDS: LEVOFLOXACIN 500MG/D5W 100ML 100 ML IV SCH (10:38)
[2020-02-24] MEDS: CLONAZEPAM 1 MG TAB PO SCH (10:38)
[2020-02-24] MEDS: HYDROCODONE/APAP 5MG-325MG TAB PO PRN ×2 (11:33→21:03)
[2020-02-24] MEDS: QUETIAPINE FUMARATE 100 MG TAB PO SCH (20:58)
[2020-02-24] MEDS: INSULIN GLARGINE 100 UNITS/ML VIAL SQ SCH (21:25)
[2020-02-25] VITALS (8 sets, daily range): BP systolic 96–112; BP diastolic 60–76
[2020-02-25] MEDS: LEVOTHYROXINE SODIUM 125 MCG TAB PO SCH (05:38)
[2020-02-25 06:56] LABS: BASOPHILS # (AUTO) 0.1 (0.0-0.1); BASOPHILS % 0.8 % (0.0-1.0); EOSINOPHILS # (AUTO) 0.3 (0.0-0.4); EOSINOPHILS % 3.9 % (0.0-6.0); HEMATOCRIT 34.2 % (34.2-44.1); HEMOGLOBIN 10.6 g/dL (12.0-16.0); LYMPHOCYTES # (AUTO) 4.6 (1.0-3.2); LYMPHOCYTES % 59.8 % (18.0-39.1); MEAN CORPUSCULAR HEMOGLOBIN 27.8 pg (28-32); MEAN CORPUSCULAR VOLUME 89.8 fL (81-99); MONOCYTES # (AUTO) 0.3 (0.2-0.8); MONOCYTES % 3.9 % (4.4-11.3); NEUTROPHILS # (AUTO) 2.3 (2.1-6.9); NEUTROPHILS % 30.8 % (38.7-80.0); PLATELET COUNT 438 x10e3/uL (140-360); RED BLOOD COUNT 3.81 x10e6/uL (3.6-5.1); RED CELL DISTRIBUTION WIDTH 12.5 % (11.7-14.4)
[2020-02-25] MEDS: INSULIN LISPRO 100 UNIT/1 ML 3ML VIAL SQ SCH ×4 (07:30→20:04)
[2020-02-25 07:37] LABS: ANION GAP 11.2 mmol/L (8-16); BLOOD UREA NITROGEN 14 mg/dL (7-26); BUN/CREATININE RATIO 14 (6-25); CALCIUM 8.3 mg/dL (8.4-10.2); CARBON DIOXIDE 26 mmol/L (22-29); CHLORIDE 104 mmol/L (98-107); CREATININE, SERUM 0.97 mg/dL (0.57-1.11); EST GLOMERULAR FILTRATION RATE > 60 ML/MIN (60-); GLUCOSE 126 mg/dL (74-118); POTASSIUM 3.2 mmol/L (3.5-5.1); SODIUM 138 mmol/L (136-145)
[2020-02-25] MEDS: LEVOFLOXACIN 500MG/D5W 100ML 100 ML IV SCH (08:19)
[2020-02-25] MEDS: CLONAZEPAM 1 MG TAB PO SCH (08:19)
[2020-02-25] MEDS: ESCITALOPRAM OXALATE 10 MG TAB PO SCH (09:03)
[2020-02-25] MEDS ORDERED: POTASSIUM CHLORIDE 20 MEQ TAB CR PO ONE (11:00)
[2020-02-25] MEDS: MORPHINE SULFATE 2 MG/ML SYR 1ML IV PRN ×2 (15:13→22:01)
[2020-02-25] MEDS: ONDANSETRON HCL INJ 2MG/ML 2ML 2 MG/ML VIAL IV PRN ×2 (17:00→22:01)
[2020-02-25] MEDS ORDERED: GABAPENTIN300 MG PO (19:02)
[2020-02-25] MEDS ORDERED: PLAQUENIL200 MG PO (19:02)
[2020-02-25] MEDS: QUETIAPINE FUMARATE 100 MG TAB PO SCH (20:11)
[2020-02-25] MEDS: INSULIN GLARGINE 100 UNITS/ML VIAL SQ SCH (20:12)
[2020-02-26 04:55] VITALS: BP 104/60
[2020-02-26] MEDS: LEVOTHYROXINE SODIUM 125 MCG TAB PO SCH (05:23)
[2020-02-26] MEDS: MORPHINE SULFATE 2 MG/ML SYR 1ML IV PRN ×2 (05:44→12:20)
[2020-02-26] MEDS: ONDANSETRON HCL INJ 2MG/ML 2ML 2 MG/ML VIAL IV PRN ×2 (05:44→12:20)
[2020-02-26 06:32] LABS: BASOPHILS # (AUTO) 0.1 (0.0-0.1); BASOPHILS % 0.9 % (0.0-1.0); EOSINOPHILS # (AUTO) 0.3 (0.0-0.4); EOSINOPHILS % 4.3 % (0.0-6.0); HEMATOCRIT 33.3 % (34.2-44.1); HEMOGLOBIN 10.4 g/dL (12.0-16.0); LYMPHOCYTES # (AUTO) 4.1 (1.0-3.2); MEAN CORPUSCULAR HEMOGLOBIN 27.9 pg (28-32); MEAN CORPUSCULAR HGB CONC 31.2 g/dL (31-35); MEAN CORPUSCULAR VOLUME 89.3 fL (81-99); MONOCYTES # (AUTO) 0.4 (0.2-0.8); MONOCYTES % 5.1 % (4.4-11.3); NEUTROPHILS # (AUTO) 2.8 (2.1-6.9); NEUTROPHILS % 35.9 % (38.7-80.0); PLATELET COUNT 451 x10e3/uL (140-360); RED BLOOD COUNT 3.73 x10e6/uL (3.6-5.1); RED CELL DISTRIBUTION WIDTH 12.7 % (11.7-14.4)
[2020-02-26 07:07] LABS: ANION GAP 10.7 mmol/L (8-16); BLOOD UREA NITROGEN 19 mg/dL (7-26); BUN/CREATININE RATIO 18 (6-25); CALCIUM 8.3 mg/dL (8.4-10.2); CARBON DIOXIDE 28 mmol/L (22-29); CHLORIDE 105 mmol/L (98-107); CREATININE, SERUM 1.05 mg/dL (0.57-1.11); EST GLOMERULAR FILTRATION RATE > 60 ML/MIN (60-); GLUCOSE 87 mg/dL (74-118); POTASSIUM 3.7 mmol/L (3.5-5.1); SODIUM 140 mmol/L (136-145)
[2020-02-26] MEDS: INSULIN LISPRO 100 UNIT/1 ML 3ML VIAL SQ SCH ×2 (07:30→11:30)
[2020-02-26 07:40] VITALS: BP 106/66
[2020-02-26 07:46] VITALS: BP 101/66
[2020-02-26] MEDS: LEVOFLOXACIN 500MG/D5W 100ML 100 ML IV SCH (09:47)
[2020-02-26] MEDS: CLONAZEPAM 1 MG TAB PO SCH (09:47)
[2020-02-26] MEDS: ESCITALOPRAM OXALATE 10 MG TAB PO SCH (09:47)
[2020-02-26 11:05] VITALS: BP 93/59
[2020-02-26] MEDS ORDERED: TYLENOL # 31 EA PO (12:02)
[2020-02-26] MEDS ORDERED: LEVOFLOXACIN250 MG PO ×2 (12:04→12:13)
[2020-02-26 15:19] VITALS: BP 102/56
== END 2020-02-26 16:31 | disposition home or self-care (01) | DRG 700 ==
LOC: ER 17:08 → ERHOLD 18:37 → MED/SURG3 20:15 → OBSVTOIN 02-25 10:44
PROVIDERS: ADMIT Internal Medicine; ATTEND Internal Medicine
DX: T83.511A Infection and inflammatory reaction due to indwelling urethral catheter, initial encounter (principal); E11.9 Type 2 diabetes mellitus without complications; N39.0 Urinary tract infection, site not specified; I10 Essential (primary) hypertension; E03.9 Hypothyroidism, unspecified; F41.9 Anxiety disorder, unspecified; E66.9 Obesity, unspecified; Z68.32 Body mass index [BMI] 32.0-32.9, adult; M32.9 Systemic lupus erythematosus, unspecified; M06.9 Rheumatoid arthritis, unspecified; Z20.828 Contact with and (suspected) exposure to other viral communicable diseases; J44.9 Chronic obstructive pulmonary disease, unspecified; N31.9 Neuromuscular dysfunction of bladder, unspecified
CPT/HCPCS: 36415; 80048; 80053; 81001; 82948; 85025; 87086; 87186; 99284; G0378; J1815; J1956; J2270; J2405; J7030; U0002

== ENCOUNTER 2020-03-12 20:46 | Emergency (ER) | payer MEDICARE ==
[~2020-03-12] VITALS: Ht 167.6 cm; Wt 88.9 kg
[~2020-03-12 20:46] MED LIST changes: +GABAPENTIN100 MG PO; +GABAPENTIN300 MG PO; +LEVOFLOXACIN250 MG PO; +TRULICITY1.5 MG/0.5 SC; +TYLENOL # 31 EA PO
[2020-03-12] MEDS ORDERED: ONDANSETRON HCL 4 MG ORAL DISINTEGRATING TAB PO ONE (21:15)
[2020-03-12] MEDS ORDERED: ONDANSETRON HCL 4 MG ORAL DISINTEGRATING TAB ONE (21:19)
[2020-03-12] MEDS ORDERED: ACETAMINOPHEN 325 MG TAB PO ONE (22:45)
[2020-03-12 22:46] LABS: CLARITY,URINE CLEAR (CLEAR); COLOR,URINE YELLOW (YELLOW); KETONES,URINE NEGATIVE (NEGATIVE); LEUKOCYTE ESTERASE ,URINE NEGATIVE (NEGATIVE); NITRITE,URINE NEGATIVE (NEGATIVE); PROTEIN,URINE DIPSTICK NEGATIVE (NEGATIVE); URINE UROBILINOGEN 0.2 mg/dL (0.2 - 1)
[2020-03-12] MEDS ORDERED: IBUPROFEN 600 MG TAB PO STA (22:46)
[2020-03-12 22:53] LABS: BACTERIA,URINE MODERATE /HPF; EPITHELIAL CELLS,URINE FEW /LPF; MUCUS,URINE FEW (RARE)
[2020-03-12] MEDS ORDERED: IBUPROFEN 600 MG TAB ONE (22:55)
[2020-03-12 23:10] VITALS: BP 113/77
== END 2020-03-12 23:11 | disposition home or self-care (01) ==
LOC: ER 20:52
DX: R06.02 Shortness of breath (principal); R07.89 Other chest pain; N39.0 Urinary tract infection, site not specified; R05 Cough; R51.9 Headache, unspecified; Z20.828 Contact with and (suspected) exposure to other viral communicable diseases; I10 Essential (primary) hypertension; E11.9 Type 2 diabetes mellitus without complications; J44.9 Chronic obstructive pulmonary disease, unspecified; F41.9 Anxiety disorder, unspecified; M32.9 Systemic lupus erythematosus, unspecified; M06.9 Rheumatoid arthritis, unspecified
CPT/HCPCS: 71045; 81001; 87086; 87186; 99283; Q0162

== ENCOUNTER → 2020-07-26 | Day surgery (SDC) | payer MEDICARE ==
[2020-07-24 14:14] LABS: BASOPHILS # (AUTO) 0.1 (0.0-0.1); BASOPHILS % 1.2 % (0.0-1.0); EOSINOPHILS # (AUTO) 0.2 (0.0-0.4); EOSINOPHILS % 2.8 % (0.0-6.0); HEMATOCRIT 39.1 % (34.2-44.1); HEMOGLOBIN 12.6 g/dL (12.0-16.0); LYMPHOCYTES # (AUTO) 4.2 (1.0-3.2); LYMPHOCYTES % 56.1 % (18.0-39.1); MEAN CORPUSCULAR HEMOGLOBIN 28.2 pg (28-32); MEAN CORPUSCULAR HGB CONC 32.2 g/dL (31-35); MEAN CORPUSCULAR VOLUME 87.5 fL (81-99); MONOCYTES # (AUTO) 0.4 (0.2-0.8); MONOCYTES % 5.1 % (4.4-11.3); NEUTROPHILS # (AUTO) 2.6 (2.1-6.9); NEUTROPHILS % 34.5 % (38.7-80.0); PLATELET COUNT 410 x10e3/uL (140-360); RED BLOOD COUNT 4.47 x10e6/uL (3.6-5.1); RED CELL DISTRIBUTION WIDTH 14.4 % (11.7-14.4)
[2020-07-24 14:36] LABS: ANION GAP 16.9 mmol/L (8-16); CALCIUM 9.2 mg/dL (8.4-10.2); CREATININE, SERUM 1.55 mg/dL (0.57-1.11)
[2020-07-24 14:46] LABS: POTASSIUM 2.9 mmol/L (3.5-5.1)
[~2020-07-26] MED LIST changes: +ABILIFY5 MG PO; +AMBIEN10 MG PO; +B&O 60MG R/S 60 MG SUPP PR ONE; +BOTULINUM TOXIN TYPE A 100 UNIT VIAL IM ONE; +DEXAMETHASONE SOD PHOS INJ 4 MG/ML VIAL ONE; +EPHEDRINE SULFATE INJ 50 MG/ML VIAL ONE; +FENTANYL CITRATE/PF 100MCG/2 ML INJ ONE; +GENTAMICIN IV ONE; +IOPAMIDOL 300MG/ML 50ML INFUS..BTL IV ONE; -MICROZIDE; +MICROZIDE PO; +MIDAZOLAM HCL 2 MG/2 ML VIAL ONE; +ONDANSETRON HCL 4 MG ORAL DISINTEGRATING TAB ONE; +ONDANSETRON HCL INJ 2MG/ML 2ML 2 MG/ML VIAL ONE; +POVIDONE IODINE 0.05% 0.05 % ML PO ONE; +PROPOFOL IV EMULSION 10 MG/ML 20 ML VIAL ONE; +SEVOFLURANE INHAL SOLN 250 ML PEN BTL ONE; -[UNRECOGNIZED DRUG - OTHER]; +[UNRECOGNIZED DRUG - OTHER] IV ONE; +[UNRECOGNIZED DRUG - OTHER] PO
[2020-07-26 11:50] VITALS: BP 122/79
== END | disposition home or self-care (01) ==
LOC: OR 08:47
PROVIDERS: ATTEND Urology
DX: N39.41 Urge incontinence (principal); N39.0 Urinary tract infection, site not specified; Z43.5 Encounter for attention to cystostomy; N81.10 Cystocele, unspecified; N81.6 Rectocele; N36.41 Hypermobility of urethra; N31.9 Neuromuscular dysfunction of bladder, unspecified; N31.2 Flaccid neuropathic bladder, not elsewhere classified; R81 Glycosuria; R35.1 Nocturia; M32.9 Systemic lupus erythematosus, unspecified; G89.4 Chronic pain syndrome; I44.0 Atrioventricular block, first degree; E66.9 Obesity, unspecified; J44.9 Chronic obstructive pulmonary disease, unspecified; I10 Essential (primary) hypertension; I25.2 Old myocardial infarction; E11.9 Type 2 diabetes mellitus without complications; K50.90 Crohn's disease, unspecified, without complications; G47.00 Insomnia, unspecified; F32.9 Major depressive disorder, single episode, unspecified; F41.0 Panic disorder [episodic paroxysmal anxiety]; Z88.0 Allergy status to penicillin; Z88.2 Allergy status to sulfonamides; Z88.1 Allergy status to other antibiotic agents; Z91.041 Radiographic dye allergy status; Z01.810 Encounter for preprocedural cardiovascular examination; Z01.812 Encounter for preprocedural laboratory examination; Z20.822 Contact with and (suspected) exposure to COVID-19; Z79.4 Long term (current) use of insulin; Z68.31 Body mass index [BMI] 31.0-31.9, adult; Z87.442 Personal history of urinary calculi
CPT/HCPCS: 36415 ×2; 51705; 52005; 52287; 74420; 80048; 82948; 84132; 85025; 93005; C1758; J0587; J1580; J2250; J3010; Q0162; Q9967; U0002

== ENCOUNTER → 2020-08-29 | Day surgery (SDC) | payer MEDICARE ==
[2020-08-28 09:26] LABS: BASOPHILS # (AUTO) 0.1 (0.0-0.1); BASOPHILS % 0.9 % (0.0-1.0); EOSINOPHILS # (AUTO) 0.2 (0.0-0.4); EOSINOPHILS % 3.2 % (0.0-6.0); HEMOGLOBIN 12.1 g/dL (12.0-16.0); LYMPHOCYTES # (AUTO) 3.9 (1.0-3.2); LYMPHOCYTES % 51.8 % (18.0-39.1); MEAN CORPUSCULAR HEMOGLOBIN 28.5 pg (28-32); MEAN CORPUSCULAR VOLUME 91.8 fL (81-99); MONOCYTES # (AUTO) 0.4 (0.2-0.8); MONOCYTES % 4.9 % (4.4-11.3); NEUTROPHILS # (AUTO) 2.9 (2.1-6.9); NEUTROPHILS % 38.7 % (38.7-80.0); PLATELET COUNT 213 x10e3/uL (140-360); RED BLOOD COUNT 4.25 x10e6/uL (3.6-5.1); RED CELL DISTRIBUTION WIDTH 15.1 % (11.7-14.4)
[2020-08-28 09:55] LABS: ANION GAP 17.3 mmol/L (8-16); CALCIUM 8.6 mg/dL (8.4-10.2); CREATININE, SERUM 1.25 mg/dL (0.57-1.11); POTASSIUM 3.3 mmol/L (3.5-5.1)
[~2020-08-29] MED LIST changes: -BOTULINUM TOXIN TYPE A 100 UNIT VIAL IM ONE; -DEXAMETHASONE SOD PHOS INJ 4 MG/ML VIAL ONE; -EPHEDRINE SULFATE INJ 50 MG/ML VIAL ONE; -FENTANYL CITRATE/PF 100MCG/2 ML INJ ONE; +GENTAMICIN 80MG/NS 100 ML 200 ML IV ONE; -GENTAMICIN IV ONE; -IOPAMIDOL 300MG/ML 50ML INFUS..BTL IV ONE; +LIDOCAINE HCL 2% LOCAL INJ 5 ML SDV VIAL INJ ONE; -MIDAZOLAM HCL 2 MG/2 ML VIAL ONE; -ONDANSETRON HCL 4 MG ORAL DISINTEGRATING TAB ONE; -ONDANSETRON HCL INJ 2MG/ML 2ML 2 MG/ML VIAL ONE; -SEVOFLURANE INHAL SOLN 250 ML PEN BTL ONE; -[UNRECOGNIZED DRUG - OTHER] IV ONE
[2020-08-29 08:15] VITALS: BP 126/78
== END | disposition home or self-care (01) ==
LOC: OR 07:15
PROVIDERS: ATTEND Urology
DX: Z43.5 Encounter for attention to cystostomy (principal); N31.2 Flaccid neuropathic bladder, not elsewhere classified; N30.11 Interstitial cystitis (chronic) with hematuria; R81 Glycosuria; R35.1 Nocturia; N28.1 Cyst of kidney, acquired; N81.89 Other female genital prolapse; N36.41 Hypermobility of urethra; N95.2 Postmenopausal atrophic vaginitis; I10 Essential (primary) hypertension; E11.9 Type 2 diabetes mellitus without complications; M32.9 Systemic lupus erythematosus, unspecified; E66.9 Obesity, unspecified; J44.9 Chronic obstructive pulmonary disease, unspecified; M79.7 Fibromyalgia; K50.90 Crohn's disease, unspecified, without complications; Z88.0 Allergy status to penicillin; Z88.6 Allergy status to analgesic agent; Z88.1 Allergy status to other antibiotic agents; Z91.041 Radiographic dye allergy status; Z01.812 Encounter for preprocedural laboratory examination; Z20.822 Contact with and (suspected) exposure to COVID-19; Z79.4 Long term (current) use of insulin; Z68.31 Body mass index [BMI] 31.0-31.9, adult; Z86.16 Personal history of COVID-19; Z87.442 Personal history of urinary calculi
CPT/HCPCS: 36415; 51710; 80048; 85025; 87086; 87186; J1580; J2001; J2704; U0002

== ENCOUNTER → 2021-01-10 | Day surgery (SDC) | payer MEDICARE ==
[2021-01-09 09:57] LABS: BASOPHILS # (AUTO) 0.1 (0.0-0.1); EOSINOPHILS # (AUTO) 0.1 (0.0-0.4); HEMATOCRIT 39.2 % (34.2-44.1); HEMOGLOBIN 12.5 g/dL (12.0-16.0); LYMPHOCYTES # (AUTO) 3.3 (1.0-3.2); LYMPHOCYTES % 45.9 % (18.0-39.1); MEAN CORPUSCULAR HEMOGLOBIN 27.9 pg (28-32); MEAN CORPUSCULAR HGB CONC 31.9 g/dL (31-35); MEAN CORPUSCULAR VOLUME 87.5 fL (81-99); MONOCYTES # (AUTO) 0.3 (0.2-0.8); MONOCYTES % 4.8 % (4.4-11.3); NEUTROPHILS # (AUTO) 3.3 (2.1-6.9); NEUTROPHILS % 45.9 % (38.7-80.0); PLATELET COUNT 511 x10e3/uL (140-360); RED BLOOD COUNT 4.48 x10e6/uL (3.6-5.1); RED CELL DISTRIBUTION WIDTH 13.1 % (11.7-14.4)
[2021-01-09 10:15] LABS: ANION GAP 14.3 mmol/L (8-16); CALCIUM 8.9 mg/dL (8.4-10.2); CREATININE, SERUM 1.22 mg/dL (0.57-1.11); POTASSIUM 3.3 mmol/L (3.5-5.1)
[~2021-01-10] MED LIST changes: -B&O 60MG R/S 60 MG SUPP PR ONE; +BELLADONNA/OPIUM 30 MG SUPP RC ONE; +BOTULINUM TOXIN TYPE A 100 UNIT VIAL IM ONE; +CIPRO250 MG PO; +FENTANYL CITRATE/PF 100MCG/2 ML INJ ONE; +GENTAMICIN 120MG/NS 100ML 200 ML ONE; +GENTAMICIN 80MG/NS 100 ML 100 ML IV ONE; -GENTAMICIN 80MG/NS 100 ML 200 ML IV ONE; +HYDROCODONE/APAP 5MG-325MG TAB ONE; +IOPAMIDOL 300MG/ML 50ML INFUS..BTL IV ONE; +LEVOFLOXACIN 500MG/D5W 100ML 100 ML IV ONE; -LIDOCAINE HCL 2% LOCAL INJ 5 ML SDV VIAL INJ ONE; +ONDANSETRON HCL INJ 2MG/ML 2ML 2 MG/ML VIAL ONE; -POVIDONE IODINE 0.05% 0.05 % ML PO ONE; -PROPOFOL IV EMULSION 10 MG/ML 20 ML VIAL ONE
[2021-01-10 08:45] VITALS: BP 114/59
== END | disposition home or self-care (01) ==
LOC: OR 07:06
PROVIDERS: ATTEND Urology
DX: N39.41 Urge incontinence (principal); N39.0 Urinary tract infection, site not specified; Z43.5 Encounter for attention to cystostomy; N81.10 Cystocele, unspecified; N95.2 Postmenopausal atrophic vaginitis; N32.89 Other specified disorders of bladder; J44.9 Chronic obstructive pulmonary disease, unspecified; I10 Essential (primary) hypertension; I34.1 Nonrheumatic mitral (valve) prolapse; E11.9 Type 2 diabetes mellitus without complications; M32.9 Systemic lupus erythematosus, unspecified; E03.9 Hypothyroidism, unspecified; M06.9 Rheumatoid arthritis, unspecified; K21.9 Gastro-esophageal reflux disease without esophagitis; F41.9 Anxiety disorder, unspecified; Z88.0 Allergy status to penicillin; Z88.2 Allergy status to sulfonamides; Z88.1 Allergy status to other antibiotic agents; Z91.041 Radiographic dye allergy status; Z01.810 Encounter for preprocedural cardiovascular examination; Z01.812 Encounter for preprocedural laboratory examination; Z20.822 Contact with and (suspected) exposure to COVID-19; Z79.4 Long term (current) use of insulin
CPT/HCPCS: 36415 ×2; 51705; 52005; 52287; 74420; 80048; 82948; 85025; 93005; C1758; J0587; J1580 ×2; J1956; J2405; J3010; Q9967; U0002

== ENCOUNTER → 2021-04-11 | Day surgery (SDC) | payer MEDICARE ==
[2021-04-09 15:32] LABS: BASOPHILS # (AUTO) 0.1 (0.0-0.1); BASOPHILS % 1.2 % (0.0-1.0); EOSINOPHILS # (AUTO) 0.2 (0.0-0.4); EOSINOPHILS % 2.1 % (0.0-6.0); HEMATOCRIT 37.6 % (34.2-44.1); LYMPHOCYTES # (AUTO) 3.9 (1.0-3.2); LYMPHOCYTES % 45.3 % (18.0-39.1); MEAN CORPUSCULAR HEMOGLOBIN 27.6 pg (28-32); MEAN CORPUSCULAR HGB CONC 29.3 g/dL (31-35); MEAN CORPUSCULAR VOLUME 94.2 fL (81-99); MONOCYTES # (AUTO) 0.4 (0.2-0.8); MONOCYTES % 4.4 % (4.4-11.3); NEUTROPHILS % 46.4 % (38.7-80.0); PLATELET COUNT 374 x10e3/uL (140-360); RED BLOOD COUNT 3.99 x10e6/uL (3.6-5.1); RED CELL DISTRIBUTION WIDTH 15.7 % (11.7-14.4)
[2021-04-09 15:46] LABS: ANION GAP 15.3 mmol/L (8-16); CALCIUM 8.9 mg/dL (8.4-10.2); CREATININE, SERUM 1.2 mg/dL (0.57-1.11); POTASSIUM 3.3 mmol/L (3.5-5.1)
[~2021-04-11] MED LIST changes: +BUSPAR; +DEXAMETHASONE SOD PHOS INJ 4 MG/ML SDV ONE; +DIPHENHYDRAMINE HCL INJ 50 MG/ML VIAL ONE; +EPHEDRINE SULFATE INJ 50 MG/ML VIAL ONE; -GENTAMICIN 120MG/NS 100ML 200 ML ONE; -GENTAMICIN 80MG/NS 100 ML 100 ML IV ONE; +GENTAMICIN 80MG/NS 100 ML 200 ML IV ONE; -HYDROCODONE/APAP 5MG-325MG TAB ONE; -LEVOFLOXACIN 500MG/D5W 100ML 100 ML IV ONE; +LIDOCAINE HCL 2% LOCAL INJ 5 ML SDV VIAL INJ ONE; +MIDAZOLAM HCL 2 MG/2 ML VIAL ONE; +Morphine 2mg Syringe 2 MG/ML SYR ONE; +NEURONTIN100 MG PO; +POVIDONE IODINE 0.05% 0.05 % ML PO ONE; +PROPOFOL IV EMULSION 10 MG/ML 20 ML VIAL ONE; +SEVOFLURANE INHAL SOLN 250 ML PEN BTL ONE
[2021-04-11 11:25] VITALS: BP 118/74
== END | disposition home or self-care (01) ==
LOC: OR 07:13
PROVIDERS: ATTEND Urology
DX: N39.41 Urge incontinence (principal); N39.0 Urinary tract infection, site not specified; Z43.5 Encounter for attention to cystostomy; N81.10 Cystocele, unspecified; N81.6 Rectocele; N36.41 Hypermobility of urethra; N95.2 Postmenopausal atrophic vaginitis; M32.9 Systemic lupus erythematosus, unspecified; J44.9 Chronic obstructive pulmonary disease, unspecified; I10 Essential (primary) hypertension; I34.1 Nonrheumatic mitral (valve) prolapse; E11.9 Type 2 diabetes mellitus without complications; K50.90 Crohn's disease, unspecified, without complications; K57.90 Diverticulosis of intestine, part unspecified, without perforation or abscess without bleeding; F41.9 Anxiety disorder, unspecified; M19.90 Unspecified osteoarthritis, unspecified site; Z88.0 Allergy status to penicillin; Z88.2 Allergy status to sulfonamides; Z88.1 Allergy status to other antibiotic agents; Z91.041 Radiographic dye allergy status; Z01.812 Encounter for preprocedural laboratory examination; Z20.822 Contact with and (suspected) exposure to COVID-19; Z79.4 Long term (current) use of insulin; Z79.899 Other long term (current) drug therapy
CPT/HCPCS: 36415; 51705; 52005; 52287; 74420; 80048; 85025; C1758; J0587; J1100; J1200; J1580; J2001; J2250; J2270; J2405; J2704; J3010; Q9967; U0002

== ENCOUNTER → 2021-08-04 | Day surgery (SDC) | payer MEDICARE ==
[2021-08-01 13:40] LABS: BASOPHILS # (AUTO) 0.1 (0.0-0.1); BASOPHILS % 1.6 % (0.0-1.0); EOSINOPHILS # (AUTO) 0.2 (0.0-0.4); EOSINOPHILS % 2.5 % (0.0-6.0); HEMOGLOBIN 12.3 g/dL (12.0-16.0); LYMPHOCYTES # (AUTO) 3.3 (1.0-3.2); LYMPHOCYTES % 52.1 % (18.0-39.1); MEAN CORPUSCULAR HEMOGLOBIN 28.1 pg (28-32); MEAN CORPUSCULAR HGB CONC 30.8 g/dL (31-35); MEAN CORPUSCULAR VOLUME 91.3 fL (81-99); MONOCYTES # (AUTO) 0.3 (0.2-0.8); MONOCYTES % 5.2 % (4.4-11.3); NEUTROPHILS # (AUTO) 2.4 (2.1-6.9); NEUTROPHILS % 38.4 % (38.7-80.0); PLATELET COUNT 405 x10e3/uL (140-360); RED BLOOD COUNT 4.38 x10e6/uL (3.6-5.1); RED CELL DISTRIBUTION WIDTH 14.5 % (11.7-14.4)
[2021-08-01 13:57] LABS: ANION GAP 14.6 mmol/L (8-16); CALCIUM 8.4 mg/dL (8.4-10.2); CREATININE, SERUM 1.06 mg/dL (0.57-1.11); POTASSIUM 3.6 mmol/L (3.5-5.1)
[~2021-08-04] MED LIST changes: +ACETAMINOPHEN 1000 MG/100 ML IV ONE; +B&O 60MG R/S 60 MG SUPP PR ONE; -BELLADONNA/OPIUM 30 MG SUPP RC ONE; +BUPIVACAINE HCL 0.5% 10ML MPF VIAL INJ ONE; -DEXAMETHASONE SOD PHOS INJ 4 MG/ML SDV ONE; -DIPHENHYDRAMINE HCL INJ 50 MG/ML VIAL ONE; +HYDROXYZIN10 MG/5 ML PO; -IOPAMIDOL 300MG/ML 50ML INFUS..BTL IV ONE; +IOPAMIDOL 610MG/1ML 300 MG/ML VIAL IV ONE; +LIDOCAINE 1% W/EPINEPHRINE 20 ML VIAL ONE; -LIDOCAINE HCL 2% LOCAL INJ 5 ML SDV VIAL INJ ONE; -Morphine 2mg Syringe 2 MG/ML SYR ONE; -ONDANSETRON HCL INJ 2MG/ML 2ML 2 MG/ML VIAL ONE; -POVIDONE IODINE 0.05% 0.05 % ML PO ONE; -SEVOFLURANE INHAL SOLN 250 ML PEN BTL ONE; +SUGAMMADEX SODIUM 200 MG/2 ML VIAL IV ONE; +VENLAFAXINE H37.5 M2 PO; +VESICARE5 MG PO
[2021-08-04 17:20] VITALS: BP 109/81
== END | disposition home or self-care (01) ==
LOC: OR 12:31
PROVIDERS: ATTEND Urology
DX: N39.41 Urge incontinence (principal); Z96.82 Presence of neurostimulator; Z43.5 Encounter for attention to cystostomy; N81.10 Cystocele, unspecified; N81.6 Rectocele; N36.41 Hypermobility of urethra; N32.89 Other specified disorders of bladder; N31.9 Neuromuscular dysfunction of bladder, unspecified; N31.2 Flaccid neuropathic bladder, not elsewhere classified; N30.11 Interstitial cystitis (chronic) with hematuria; Z87.442 Personal history of urinary calculi; R81 Glycosuria; R35.1 Nocturia; E66.9 Obesity, unspecified; N28.1 Cyst of kidney, acquired; N81.89 Other female genital prolapse; N95.2 Postmenopausal atrophic vaginitis; M32.9 Systemic lupus erythematosus, unspecified; G89.4 Chronic pain syndrome; I10 Essential (primary) hypertension; E11.9 Type 2 diabetes mellitus without complications; M79.7 Fibromyalgia; F32.A Depression, unspecified; F41.9 Anxiety disorder, unspecified; Z88.0 Allergy status to penicillin; Z88.6 Allergy status to analgesic agent; Z88.1 Allergy status to other antibiotic agents; Z91.041 Radiographic dye allergy status; Z01.810 Encounter for preprocedural cardiovascular examination; Z01.812 Encounter for preprocedural laboratory examination; Z20.822 Contact with and (suspected) exposure to COVID-19; Z79.4 Long term (current) use of insulin; Z79.899 Other long term (current) drug therapy; Z68.31 Body mass index [BMI] 31.0-31.9, adult; Z86.16 Personal history of COVID-19; Z87.891 Personal history of nicotine dependence
CPT/HCPCS: 36415; 76000; 80048; 82948; 85025; 88300; 88304; 93005; C1713; C1758; C1778; C1787; J0587; J1580; J2250; J3010; U0002

== ENCOUNTER → 2022-01-26 | Day surgery (SDC) | payer MEDICARE ==
[2022-01-23 11:55] LABS: BASOPHILS # (AUTO) 0.1 (0.0-0.1); BASOPHILS % 1.3 % (0.0-1.0); EOSINOPHILS # (AUTO) 0.2 (0.0-0.4); EOSINOPHILS % 2.4 % (0.0-6.0); HEMATOCRIT 40.7 % (34.2-44.1); HEMOGLOBIN 12.3 g/dL (12.0-16.0); LYMPHOCYTES % 47.7 % (18.0-39.1); MEAN CORPUSCULAR HEMOGLOBIN 28.3 pg (28-32); MEAN CORPUSCULAR HGB CONC 30.2 g/dL (31-35); MEAN CORPUSCULAR VOLUME 93.8 fL (81-99); MONOCYTES # (AUTO) 0.2 (0.2-0.8); MONOCYTES % 3.2 % (4.4-11.3); NEUTROPHILS # (AUTO) 2.8 (2.1-6.9); NEUTROPHILS % 45.1 % (38.7-80.0); PLATELET COUNT 421 x10e3/uL (140-360); RED BLOOD COUNT 4.34 x10e6/uL (3.6-5.1); RED CELL DISTRIBUTION WIDTH 13.7 % (11.7-14.4)
[2022-01-23 12:15] LABS: ANION GAP 17.2 mmol/L (8-16); CALCIUM 8.8 mg/dL (8.4-10.2); CREATININE, SERUM 1.1 mg/dL (0.57-1.11); POTASSIUM 3.2 mmol/L (3.5-5.1)
[~2022-01-26] MED LIST changes: -ACETAMINOPHEN 1000 MG/100 ML IV ONE; +ACETAMINOPHEN-1 EAC4 PO; +ACETAMINOPHEN/CODEINE 300MG - 30MG TAB ONE; -BUPIVACAINE HCL 0.5% 10ML MPF VIAL INJ ONE; +DEXAMETHASONE SOD PHOS INJ 4 MG/ML SDV ONE; +GEMTESA75 MG PO; -GENTAMICIN 80MG/NS 100 ML 200 ML IV ONE; +IOPAMIDOL 300MG/ML 50ML INFUS..BTL IV ONE; -IOPAMIDOL 610MG/1ML 300 MG/ML VIAL IV ONE; +LEVOFLOXACIN 500MG/D5W 100ML 100 ML IV ONE; -LIDOCAINE 1% W/EPINEPHRINE 20 ML VIAL ONE; +LIDOCAINE HCL 2% LOCAL INJ 5 ML SDV VIAL INJ ONE; +METOCLOPRAMIDE HCL 10 MG/2ML VIAL ONE; +MULTIVITAMIN200 MCG; +ONDANSETRON HCL INJ 2MG/ML 2ML 2 MG/ML VIAL ONE; +PHENYLEPHRINE HCL 1% 10 MG/ML VIAL ONE; +POVIDONE IODINE 0.05% 0.05 % ML PO ONE; +SEVOFLURANE INHAL SOLN 250 ML PEN BTL ONE; -SUGAMMADEX SODIUM 200 MG/2 ML VIAL IV ONE; +VITAMIN B-121000 MCG PO
[2022-01-26 08:25] VITALS: BP 117/65
== END | disposition home or self-care (01) ==
LOC: OR 06:44
PROVIDERS: ATTEND Urology
DX: N31.9 Neuromuscular dysfunction of bladder, unspecified (principal); N39.41 Urge incontinence; R81 Glycosuria; N31.2 Flaccid neuropathic bladder, not elsewhere classified; R35.1 Nocturia; Z43.5 Encounter for attention to cystostomy; N39.0 Urinary tract infection, site not specified; N81.10 Cystocele, unspecified; N36.41 Hypermobility of urethra; Z96.82 Presence of neurostimulator; Z87.442 Personal history of urinary calculi; M32.9 Systemic lupus erythematosus, unspecified; I10 Essential (primary) hypertension; E11.9 Type 2 diabetes mellitus without complications; J44.9 Chronic obstructive pulmonary disease, unspecified; E66.9 Obesity, unspecified; M06.9 Rheumatoid arthritis, unspecified; G89.4 Chronic pain syndrome; F41.9 Anxiety disorder, unspecified; F32.A Depression, unspecified; Z88.0 Allergy status to penicillin; Z88.6 Allergy status to analgesic agent; Z88.1 Allergy status to other antibiotic agents; Z91.041 Radiographic dye allergy status; Z01.810 Encounter for preprocedural cardiovascular examination; Z01.812 Encounter for preprocedural laboratory examination; Z01.818 Encounter for other preprocedural examination; Z79.4 Long term (current) use of insulin; Z79.899 Other long term (current) drug therapy; Z68.31 Body mass index [BMI] 31.0-31.9, adult
CPT/HCPCS: 36415 ×2; 51705; 52005; 52287; 71046; 74420; 80048; 82948; 85025; 87086; 87186; 93005; C1758; J0587; J1100; J1956; J2001; J2250; J2370; J2405; J2704; J2765; J3010; Q9967

== ENCOUNTER → 2024-08-02 | Day surgery (SDC) | payer MEDICARE ==
[~2024-08-02] MED LIST changes: +ACETAMINOPHEN 1000 MG/100 ML 100 ML IV ONE; -ACETAMINOPHEN/CODEINE 300MG - 30MG TAB ONE; -B&O 60MG R/S 60 MG SUPP PR ONE; +CRANBERRY 12,61 EACH PO; -EPHEDRINE SULFATE INJ 50 MG/ML VIAL ONE; +FAMOTIDINE 20 MG/2 ML VIAL IV ONE; +HYDROCHLOROTHIA25 MG PO; +HYGROTON25 MG PO; -IOPAMIDOL 300MG/ML 50ML INFUS..BTL IV ONE; -LEVOFLOXACIN 500MG/D5W 100ML 100 ML IV ONE; -METOCLOPRAMIDE HCL 10 MG/2ML VIAL ONE; +MOUNJARO7.5 MG/0.5 SC; +OXYBUTYNIN CHLOR5 M1 PO; -POVIDONE IODINE 0.05% 0.05 % ML PO ONE; +SODIUM CHLORIDE 0.9% 100 ML ONE; +TRESIBA FL200 UNIT/1 SC
[2024-08-02 08:58] LABS: BASOPHILS # (AUTO) 0.1 (0.0-0.1); BASOPHILS % 0.8 % (0.0-1.0); EOSINOPHILS # (AUTO) 0.1 (0.0-0.4); EOSINOPHILS % 1.4 % (0.0-6.0); HEMATOCRIT 40.4 % (34.2-44.1); HEMOGLOBIN 12.6 g/dL (12.0-16.0); LYMPHOCYTES # (AUTO) 3.5 (1.0-3.2); LYMPHOCYTES % 41.2 % (18.0-39.1); MEAN CORPUSCULAR HEMOGLOBIN 27.7 pg (28-32); MEAN CORPUSCULAR HGB CONC 31.2 g/dL (31-35); MEAN CORPUSCULAR VOLUME 88.8 fL (81-99); MONOCYTES # (AUTO) 0.4 (0.2-0.8); MONOCYTES % 4.9 % (4.4-11.3); NEUTROPHILS # (AUTO) 4.3 (2.1-6.9); NEUTROPHILS % 51.2 % (38.7-80.0); PLATELET COUNT 275 x10e3/uL (140-360); RED BLOOD COUNT 4.55 x10e6/uL (3.6-5.1); RED CELL DISTRIBUTION WIDTH 14.5 % (11.7-14.4); WHITE BLOOD COUNT 8.45 x10e3/uL (4.8-10.8)
[2024-08-02 09:18] LABS: ANION GAP 17.5 mmol/L (8-16); CALCIUM 9.1 mg/dL (8.4-10.2); CREATININE, SERUM 0.86 mg/dL (0.57-1.11); POTASSIUM 3.5 mmol/L (3.5-5.1)
[2024-08-02] MEDS: GENTAMICIN 80MG/NS 100 ML 200 ML IV ONE (09:36)
[2024-08-02] MEDS: CLINDAMYCIN 600MG / 50ML 50 ML IV ONE (09:36)
[2024-08-02] MEDS: LACTATED RINGER'S 1,000 ML ONE (09:36)
[2024-08-02 12:14] VITALS: TEMP 97.4
[2024-08-02] MEDS: FENTANYL CITRATE/PF 100MCG/2 ML INJ ONE (12:30)
[2024-08-02] MEDS: ACETAMINOPHEN/CODEINE 300MG - 30MG TAB ONE (13:10)
[2024-08-02 13:30] VITALS: BP 148/96; PULSE 79; RESP 16; O2SAT 97
== END | disposition home or self-care (01) ==
LOC: OR 08:16
PROVIDERS: ATTEND Urology
DX: N39.41 Urge incontinence (principal); Z93.6 Other artificial openings of urinary tract status; N30.11 Interstitial cystitis (chronic) with hematuria; N31.2 Flaccid neuropathic bladder, not elsewhere classified; N81.10 Cystocele, unspecified; N81.6 Rectocele; N36.41 Hypermobility of urethra; N95.2 Postmenopausal atrophic vaginitis; Z87.442 Personal history of urinary calculi; R81 Glycosuria; R35.1 Nocturia; N28.1 Cyst of kidney, acquired; N81.89 Other female genital prolapse; N28.9 Disorder of kidney and ureter, unspecified; G47.33 Obstructive sleep apnea (adult) (pediatric); E11.9 Type 2 diabetes mellitus without complications; I10 Essential (primary) hypertension; E78.00 Pure hypercholesterolemia, unspecified; E66.9 Obesity, unspecified; I34.1 Nonrheumatic mitral (valve) prolapse; J45.909 Unspecified asthma, uncomplicated; E03.9 Hypothyroidism, unspecified; K21.9 Gastro-esophageal reflux disease without esophagitis; M32.9 Systemic lupus erythematosus, unspecified; M06.9 Rheumatoid arthritis, unspecified; G89.29 Other chronic pain; K50.90 Crohn's disease, unspecified, without complications; K59.00 Constipation, unspecified; F41.9 Anxiety disorder, unspecified; F32.A Depression, unspecified; Z88.0 Allergy status to penicillin; Z88.2 Allergy status to sulfonamides; Z88.1 Allergy status to other antibiotic agents; Z91.041 Radiographic dye allergy status; Z79.4 Long term (current) use of insulin; Z79.85 Long-term (current) use of injectable non-insulin antidiabetic drugs; Z79.899 Other long term (current) drug therapy; Z88.6 Allergy status to analgesic agent; Z86.16 Personal history of COVID-19; Z87.891 Personal history of nicotine dependence; Z68.34 Body mass index [BMI] 34.0-34.9, adult
CPT/HCPCS: 36415; 52005; 52287; 64585; 64595; 74420; 80048; 82948; 85025; 87086; 88300; 93005; C1758; J0131; J0587; J1100; J1308; J1580; J2003; J2250; J2371; J2405; J2704; J3010; J7050; J7121

== ENCOUNTER 2024-12-15 08:36 | Inpatient (IN) | payer MEDICARE ==
[~2024-12-15] VITALS: Ht 167.6 cm; Wt 120.7 kg
[~2024-12-15 08:36] MED LIST changes: -ACETAMINOPHEN 1000 MG/100 ML 100 ML IV ONE; -BOTULINUM TOXIN TYPE A 100 UNIT VIAL IM ONE; +COREG6.25 MG PO; -DEXAMETHASONE SOD PHOS INJ 4 MG/ML SDV ONE; +ESIDRIX25 MG PO; -FAMOTIDINE 20 MG/2 ML VIAL IV ONE; -FENTANYL CITRATE/PF 100MCG/2 ML INJ ONE; -LIDOCAINE HCL 2% LOCAL INJ 5 ML SDV VIAL INJ ONE; -MIDAZOLAM HCL 2 MG/2 ML VIAL ONE; -ONDANSETRON HCL INJ 2MG/ML 2ML 2 MG/ML VIAL ONE; +OXYBUTYNIN PO; -PHENYLEPHRINE HCL 1% 10 MG/ML VIAL ONE; +POTASSIUM CHLO20 ME1 PO; -PROPOFOL IV EMULSION 10 MG/ML 20 ML VIAL ONE; -SEVOFLURANE INHAL SOLN 250 ML PEN BTL ONE; -SODIUM CHLORIDE 0.9% 100 ML ONE
[2024-12-15] MEDS ORDERED: BOTULINUM TOXIN TYPE A 100 UNIT VIAL IM ONE (09:32)
[2024-12-15 09:44] LABS: BASOPHILS % 1.0 % (0.0-1.0); EOSINOPHILS % 1.9 % (0.0-6.0); LYMPHOCYTES % 44.9 % (18.0-39.1); MONOCYTES % 4.2 % (4.4-11.3); NEUTROPHILS % 47.6 % (38.7-80.0); RED CELL DISTRIBUTION WIDTH 14.0 % (11.7-14.4)
[2024-12-15 10:27] LABS: EST GLOMERULAR FILTRATION RATE 79.0 ML/MIN (>=60)
[2024-12-15 10:38] LABS: INR 1.12
[2024-12-15] MEDS ORDERED: FENTANYL CITRATE/PF 100MCG/2 ML INJ ONE (10:48)
[2024-12-15] MEDS ORDERED: LIDOCAINE HCL 2% LOCAL INJ 5 ML SDV VIAL INJ ONE (10:48)
[2024-12-15] MEDS ORDERED: SEVOFLURANE INHAL SOLN 250 ML PEN BTL ONE (10:48)
[2024-12-15] MEDS ORDERED: PROPOFOL IV EMULSION 10 MG/ML 20 ML VIAL ONE (10:48)
[2024-12-15] MEDS ORDERED: EPHEDRINE SULFATE INJ 50 MG/ML VIAL ONE ×2 (10:49)
[2024-12-15] MEDS ORDERED: FAMOTIDINE 20 MG/2 ML VIAL IV ONE (11:06)
[2024-12-15] MEDS ORDERED: ONDANSETRON HCL INJ 2MG/ML 2ML 2 MG/ML VIAL ONE (11:06)
[2024-12-15] MEDS ORDERED: SODIUM CHLORIDE 0.9% 100 ML ONE (11:08)
[2024-12-15] MEDS ORDERED: PHENYLEPHRINE HCL 1% 10 MG/ML VIAL ONE (11:08)
[2024-12-15] MEDS ORDERED: DIPHENHYDRAMINE HCL 25 MG CAP PO PRN (11:30)
[2024-12-15] MEDS ORDERED: ONDANSETRON HCL INJ 2MG/ML 2ML 2 MG/ML VIAL IV PRN (11:30)
[2024-12-15] MEDS ORDERED: ACETAMINOPHEN 1000 MG/100 ML IV PRN (11:30)
[2024-12-15] MEDS: FENTANYL CITRATE/PF 100MCG/2 ML INJ ONE (11:45)
[2024-12-15 12:15] VITALS: BP 117/94; PULSE 72; RESP 18; TEMP 97.5; O2SAT 100
[2024-12-15] MEDS ORDERED: ACETAMINOPHEN-1 EAC4 PO (12:36)
[2024-12-15] MEDS ORDERED: MYRBETRIQ25 MG PO (12:36)
[2024-12-15 12:41] VITALS: BP 117/94; PULSE 72; RESP 18; TEMP 97.5; O2SAT 100
[2024-12-15] MEDS: GENTAMICIN 80MG/NS 100 ML 200 ML IV ONE (13:42)
[2024-12-15] MEDS: LACTATED RINGER'S 1,000 ML ONE (13:42)
[2024-12-15] MEDS: SODIUM CHLORIDE 0.9% 1000ML 1,000 ML IV SCH (13:44)
[2024-12-15] MEDS ORDERED: DEXTROSE 50% SYRINGE 50 ML IV PRN (15:00)
[2024-12-15] MEDS ORDERED: ALBUTEROL SULF 0.083% NEB SOLN 3 ML NEB NEB PRN (15:00)
[2024-12-15] MEDS: ACETAMINOPHEN/CODEINE 300MG - 30MG TAB PO PRN (15:51)
[2024-12-15] MEDS: HYDROCHLOROTHIAZIDE 25 MG TAB PO SCH (15:52)
[2024-12-15] MEDS: NITROGLYCERIN 0.4 MG SUBL SL PRN (15:53)
[2024-12-15] MEDS: HYDROXYCHLOROQUINE SULFATE 200 MG TAB PO SCH (16:17)
[2024-12-15 16:30] VITALS: BP 102/73; PULSE 76; RESP 18; TEMP 98.6; O2SAT 100
[2024-12-15 22:00] VITALS: BP 108/60; PULSE 75; RESP 20; TEMP 97.6; O2SAT 100
[2024-12-15] MEDS: CARVEDILOL 3.125 MG TAB PO SCH (22:05)
[2024-12-15] MEDS: KETOROLAC TROMETHAMINE 30 MG/ML VIAL IV PRN (22:06)
[2024-12-15] MEDS ORDERED: FUROSEMIDE20 MG (23:37)
[2024-12-16] MEDS: FUROSEMIDE 20 MG TAB PO ONE (00:12)
[2024-12-16 05:59] VITALS: BP 99/60; PULSE 73; RESP 20; O2SAT 100
[2024-12-16] MEDS: LEVOTHYROXINE SODIUM 100 MCG TAB PO SCH (06:36)
[2024-12-16 06:59] LABS: BASOPHILS % 0.6 % (0.0-1.0); EOSINOPHILS % 2.8 % (0.0-6.0); LYMPHOCYTES % 53.3 % (18.0-39.1); MONOCYTES % 6.4 % (4.4-11.3); NEUTROPHILS % 36.6 % (38.7-80.0); RED CELL DISTRIBUTION WIDTH 13.8 % (11.7-14.4)
[2024-12-16 07:23] LABS: EST GLOMERULAR FILTRATION RATE 72.0 ML/MIN (>=60)
[2024-12-16 07:51] VITALS: BP 112/64; PULSE 72; RESP 20; TEMP 97.7; O2SAT 100
[2024-12-16 07:52] VITALS: BP 112/64; PULSE 72; RESP 20; TEMP 97.7; O2SAT 100
[2024-12-16] MEDS: OLMESARTAN 20 MG TAB PO SCH (08:42)
[2024-12-16] MEDS ORDERED: ACETAMINOPHEN 1000 MG/100 ML IV PRN (08:45)
[2024-12-16] MEDS ORDERED: HYDROCHLOROTHIAZIDE 25 MG TAB PO SCH (09:00)
[2024-12-16] MEDS: POTASSIUM CHLORIDE 10MEQ EA PO SCH (09:01)
[2024-12-16] MEDS: FUROSEMIDE INJ 10 MG/ML 4 ML VIAL IV SCH (09:01)
[2024-12-16 11:58] VITALS: BP 101/71; PULSE 68; RESP 17; TEMP 97.8; O2SAT 100
[2024-12-16 16:29] VITALS: BP 101/56; PULSE 76; RESP 19; TEMP 97.7; O2SAT 100
[2024-12-16 20:00] VITALS: BP 105/54; PULSE 68; RESP 18; TEMP 98.1
[2024-12-16] MEDS ORDERED: SODIUM CHLORIDE 0.9% 200 ML ONE (21:36)
[2024-12-16] MEDS ORDERED: IOPAMIDOL 370 MG/ML 100 ML INFUS..BTL INJ ONE (21:37)
[2024-12-17 03:00] VITALS: BP 110/66; PULSE 72; RESP 16; TEMP 98.5; O2SAT 99
[2024-12-17 05:51] LABS: BASOPHILS % 0.5 % (0.0-1.0); EOSINOPHILS % 4.1 % (0.0-6.0); LYMPHOCYTES % 43.0 % (18.0-39.1); MONOCYTES % 6.2 % (4.4-11.3); NEUTROPHILS % 45.9 % (38.7-80.0); RED CELL DISTRIBUTION WIDTH 13.5 % (11.7-14.4)
[2024-12-17 06:05] LABS: EST GLOMERULAR FILTRATION RATE 65.0 ML/MIN (>=60)
[2024-12-17 06:24] LABS: PHOSPHORUS 4.5 MG/DL (2.3-4.7)
[2024-12-17 08:05] VITALS: PULSE 74; RESP 18; O2SAT 99
[2024-12-17 08:17] VITALS: BP 104/68; PULSE 64; RESP 19; TEMP 97.8; O2SAT 98
[2024-12-17 09:00] VITALS: BP 104/68; PULSE 64
[2024-12-17] MEDS ORDERED: LASIX40 MG PO (10:16)
[2024-12-17] MEDS ORDERED: KLOR-CON M2020 MEQ PO (10:20)
== END 2024-12-17 11:56 | disposition home or self-care (01) | DRG 699 ==
LOC: OR 08:36 → PACU V 11:23 → MED/SURG 12:10
PROVIDERS: ADMIT Internal Medicine; ATTEND Internal Medicine
PROC: BT141ZZ Fluoroscopy of Kidneys, Ureters and Bladder using Low Osmolar Contrast (ICD-10-PCS; 2024-12-15)
PROC: 05HY33Z Insertion of Infusion Device into Upper Vein, Percutaneous Approach (ICD-10-PCS; 2024-12-15)
PROC: 0T9B8ZZ Drainage of Bladder, Via Natural or Artificial Opening Endoscopic (ICD-10-PCS; principal; 2024-12-15 10:53)
PROC: 3E0K8GC Introduction of Other Therapeutic Substance into Genitourinary Tract, Via Natural or Artificial Opening Endoscopic (ICD-10-PCS; 2024-12-15 10:53)
DX: N32.89 Other specified disorders of bladder (principal); Z68.41 Body mass index [BMI] 40.0-44.9, adult; G89.18 Other acute postprocedural pain; M32.9 Systemic lupus erythematosus, unspecified; J44.9 Chronic obstructive pulmonary disease, unspecified; E03.9 Hypothyroidism, unspecified; J45.909 Unspecified asthma, uncomplicated; M06.9 Rheumatoid arthritis, unspecified; I34.1 Nonrheumatic mitral (valve) prolapse; F32.9 Major depressive disorder, single episode, unspecified; I95.9 Hypotension, unspecified; G89.29 Other chronic pain; E66.9 Obesity, unspecified; R31.0 Gross hematuria; E87.70 Fluid overload, unspecified; N32.81 Overactive bladder; I10 Essential (primary) hypertension; R11.2 Nausea with vomiting, unspecified; N31.9 Neuromuscular dysfunction of bladder, unspecified; N39.41 Urge incontinence; N81.10 Cystocele, unspecified; N36.41 Hypermobility of urethra; N95.2 Postmenopausal atrophic vaginitis; Z93.59 Other cystostomy status; Z87.440 Personal history of urinary (tract) infections
CPT/HCPCS: 36415; 36569; 71045; 74178; 74420; 80048; 82948; 83735; 84100; 85025; 85610; 85730; 87086; 93005; 94799; C1758; C1769; J0587; J1308; J1580; J1885; J1938; J2003; J2371; J2405; J7030; J7050; Q9967